=== PATIENT | female | born 1965 | race African-American/Black ===

== ENCOUNTER 2023-02-09 13:27 | Inpatient (IN) | payer OTHER ==
[~2023-02-09] VITALS: Ht 167.6 cm; Wt 121.6 kg
[2023-02-09] VITALS (7 sets, daily range): BP systolic 0–150; BP diastolic 0–106; PULSE 63–91; RESP 16–22
[2023-02-09] MEDS ORDERED: MIDAZOLAM HCL 100 MG in DEXT 5% WATER 80 ML IV ONE (13:45)
[2023-02-09] MEDS ORDERED: SODIUM CHLORIDE 0.9% 1,000 ML IV ONE (13:45)
[2023-02-09] MEDS ORDERED: MIDAZOLAM HCL 100 MG in SODIUM CHLORIDE 0.9% 100 ML IV PRN (14:00)
[2023-02-09] MEDS ORDERED: FUROSEMIDE 40MG/4ML VIAL IVP ONE (14:15)
[2023-02-09 14:32] LABS: BG BASE EXCESS -2.7 mmol/L (-2.0-2.0); BG DEOXYHEMOGLOBIN 18.5 % (0.0-5.0); BG HCO3 ACT 23.8 mmol/L (22.0-26.0); BG OXYGEN SATURATION 81.5 % (92.0-98.5); BG OXYHEMOGLOBIN 81.5 % (94.0-97.0); BG PCO2 48.3 mmHg (35.0-45.0); BG PH 7.311 (7.350-7.450); BG PO2 50.1 mmHg (75.0-100.0); BG SAMPLE SITE RIGHT BRACHIAL; BG TOTAL HEMOGLOBIN 12.9 g/dL (12.0-18.0); BG VENT MODE VENT - AC
[2023-02-09 14:41] LABS: CLARITY URINE TURBID (CLEAR); COLOR URINE YELLOW (YELLOW); GLUCOSE URINE NEGATIVE (NEGATIVE); KETONES URINE TRACE (NEGATIVE); LEUKOCYTE ESTERASE URINE NEGATIVE (NEGATIVE); NITRITE URINE NEGATIVE (NEGATIVE); OCCULT BLOOD URINE 1+ (NEGATIVE); PROTEIN URINE 3+ (NEGATIVE); SPECIFIC GRAVITY URINE 1.024 (1.005-1.030)
[2023-02-09 14:42] LABS: BASOPHILS % 0.5 % (0.0-2.0); EOSINOPHILS % 0.2 % (0.0-5.0); HEMATOCRIT. 39.9 % (36.0-48.0); HEMOGLOBIN. 12.7 g/dL (12.0-16.0); LYMPHOCYTES % 17.8 % (20.0-50.0); MEAN CORPUSCULAR HEMOGLOBIN 28.6 pg (28.0-32.0); MEAN CORPUSCULAR HGB CONC 31.7 g/dL (31.0-37.0); MEAN CORPUSCULAR VOLUME 90.2 fL (81.0-99.0); MEAN PLATELET VOLUME 8.9 fl (7.4-10.4); MONOCYTES % 3.4 % (2.0-8.0); NEUTROPHILS % 78.1 % (40.0-76.0); PLATELET 229 x1000/uL (130-400); RED BLOOD CELL COUNT 4.43 mill/uL (4.2-5.4); RED CELL DISTRIBUTION WIDTH 15.1 % (11.6-14.6); WHITE BLOOD COUNT 18.4 x1000/uL (4.5-11.0)
[2023-02-09 14:52] LABS: AMORPHOUS SEDIMENT URINE 1+ /lpf; SQUAMOUS EPITHELIAL CELL URINE RARE /lpf (RARE/1+); TRIPLE PHOSPHATE CRYSTAL URINE 1+ /lpf
[2023-02-09 14:53] LABS: BACTERIA URINE 1+; RBC URINE 0-2 /hpf (0-2)
[2023-02-09 14:54] LABS: WBC URINE 0-2 /hpf (0-2)
[2023-02-09 15:00] LABS: CHLORIDE 103 mEq/L (98-107); INDEX HEMOLYSI 3 (1-3); INDEX ICTERIC 1 (1-4); INDEX LIPEMIC 1 (1-3); SODIUM 140 mEq/L (136-145)
[2023-02-09] MEDS ORDERED: DEXAMETHASONE 10 MG/ML VIAL IV ONE (15:00)
[2023-02-09] MEDS ORDERED: MANNITOL 20% (20GM/100ML) BAG 500ML PREMIX IV ONE (15:00)
[2023-02-09] MEDS ORDERED: LEVETIRACETAM 1000MG PREMIX 100 ML IV ONE (15:00)
[2023-02-09 15:04] LABS: POTASSIUM 2.6 mEq/L (3.5-5.1)
[2023-02-09] MEDS ORDERED: NOREPINEPHRINE 8MG/250ML PMX 250 ML IV ONE (15:15)
[2023-02-09 15:22] LABS: AMMONIA 45 uMol/L (<32)
[2023-02-09 15:22] LABS: *AMPHETAMINES SCREEN URINE NEGATIVE (NEGATIVE); *BARBITURATES SCREEN URINE NEGATIVE (NEGATIVE); *BENZODIAZEPINES SCREEN URINE NEGATIVE (NEGATIVE); *COCAINE SCREEN URINE NEGATIVE (NEGATIVE); CANNABINOID URINE SCREEN NEGATIVE (NEGATIVE); ECSTASY MDMA SCREEN URINE NEGATIVE (NEGATIVE); METHADONE URINE SCREEN NEGATIVE (NEGATIVE); OPIATES URINE SCREEN NEGATIVE (NEGATIVE); PHENCYCLIDINE URINE SCREEN NEGATIVE (NEGATIVE)
[2023-02-09] MEDS ORDERED: FENTANYL 2500MCG/250ML PMX 250 ML IV PRN (15:30)
[2023-02-09 15:31] LABS: ACETAMINOPHEN < 2 ug/mL (10-30); ALANINE AMINOTRANSFERASE 43 IU/L (13-61); ALBUMIN 3.6 g/dL (3.4-5.0); ASPARTATE AMINOTRANSFERASE 48 IU/L (15-37); CALCIUM 8.6 mg/dL (8.5-10.1); CARBON DIOXIDE 23 mEq/L (21-32); CREATININE 0.8 mg/dL (0.6-1.3); ETHANOL BLOOD < 10 mg/dL (-10); GLUCOSE 309 mg/dL (70-105); LACTIC ACID 4.9 mmol/L (0.4-2.0); NT PRO B-TYPE NATRIURETIC PEP 43 pg/mL (5-125); PROTEIN TOTAL 6.6 g/dL (6.0-8.3); UREA NITROGEN BLOOD 17 mg/dL (7-21)
[2023-02-09] MEDS ORDERED: AZITHROMYCIN 500MG/250ML 250 ML IV NR (15:45)
[2023-02-09] MEDS ORDERED: CEFTRIAXONE 1GM PREMIX 50 ML IV NR (15:45)
[2023-02-09] MEDS ORDERED: FENTANYL CITRATE 2,500 MCG in SODIUM CHLORIDE 0.9% 200 ML IV PRN (15:45)
[2023-02-09 15:58] LABS: BG BASE EXCESS 3.1 mmol/L (-2.0-2.0); BG CARBOXYHEMOGLOBIN 0.4 % (0.5-1.5); BG DEOXYHEMOGLOBIN 0.5 % (0.0-5.0); BG HCO3 ACT 27.8 mmol/L (22.0-26.0); BG METHEMOGLOBIN 0.3 % (0.0-1.5); BG OXYGEN SATURATION 99.5 % (92.0-98.5); BG OXYHEMOGLOBIN 98.8 % (94.0-97.0); BG PCO2 42.7 mmHg (35.0-45.0); BG PH 7.432 (7.350-7.450); BG PO2 169.5 mmHg (75.0-100.0); BG SAMPLE SITE RIGHT RADIAL; BG TOTAL HEMOGLOBIN 14.2 g/dL (12.0-18.0); BG VENT MODE VENT - AC
[2023-02-09] MEDS ORDERED: POTASSIUM CHLORIDE INJ 40 MEQ in DEXT 5% WATER 250 ML IV SCH (16:00)
[2023-02-09] MEDS ORDERED: MANNITOL 20% 250 ML IV NR (16:00)
[2023-02-09] MEDS ORDERED: KCL 20MEQ/100ML X 2 FOR TOTAL KCL 40MEQ/200ML IV SCH (16:15)
[2023-02-09 16:39] LABS: BETA HYDROXYBUTYRATE 0.4 mMol/L (0.0-0.3); T4 FREE 0.93 ng/dL (0.76-1.46)
[2023-02-09 17:13] LABS: TROPONIN I HIGH SENSITIVITY 357 ng/L (<54)
[2023-02-09] MEDS ORDERED: PROPOFOL 10MG/ML 100ML 100 ML IV PRN (17:15)
[2023-02-09] MEDS: MORPHINE SULFATE 10 MG/ML CPJ IV NR ×2 (17:30→17:32)
[2023-02-09] MEDS ORDERED: NICARDIPINE 100 MG in SODIUM CHLORIDE 0.9% 60 ML IV PRN ×4 (17:30)
[2023-02-09] MEDS ORDERED: METRONIDAZOLE 500 MG PREMIX 100 ML IV SCH (18:00)
[2023-02-09] MEDS ORDERED: LIDOCAINE HCL 1%/EPI 1:200,000 30 ML VIAL ONE (20:01)
[2023-02-09] MEDS ORDERED: THROMBIN (BOVINE) 5000 UNITS/VIAL TOP ONE (20:01)
[2023-02-09] MEDS ORDERED: BACITRACIN 15GM TUBE TOP ONE ×2 (20:01→22:49)
[2023-02-09] MEDS ORDERED: GENTAMICIN SULF 40MG/ML 2ML VIAL ONE (20:02)
[2023-02-09] MEDS ORDERED: ONDANSETRON HCL 4MG/2ML INJ ONE (20:19)
[2023-02-09] MEDS ORDERED: DEXAMETHASONE 4MG/ML 1ML VIAL ONE (20:19)
[2023-02-09] MEDS ORDERED: GLYCOPYRROLATE 0.2 MG/ML 2ML VIAL ONE ×2 (20:20)
[2023-02-09] MEDS ORDERED: NEOSTIGMINE METHYLSULFATE 1MG/ML 10 ML VIAL ONE (20:20)
[2023-02-09] MEDS ORDERED: ROCURONIUM BROMIDE 10MG/ML VIAL 5ML IV ONE (20:20)
[2023-02-09] MEDS ORDERED: PROPOFOL 200MG/20ML VIAL IV ONE (20:20)
[2023-02-09] MEDS ORDERED: FENTANYL CITRATE/PF 50MCG/ML 2ML VIAL ONE (20:21)
[2023-02-09] MEDS ORDERED: MIDAZOLAM HCL 2 MG/2 ML VIAL ONE (20:21)
[2023-02-09] MEDS ORDERED: ALBUTEROL 6.7GM HFA INHALER ONE (22:14)
[2023-02-09] MEDS ORDERED: FUROSEMIDE 40MG/4ML VIAL ONE (22:15)
[2023-02-09] MEDS ORDERED: KCL 20MEQ/100ML X 2 FOR TOTAL KCL 40MEQ/200ML IV NR (22:45)
[2023-02-09] MEDS ORDERED: MORPHINE SULFATE 2 MG/ML CPJ (NOT FOR IM USE) IV PRN (23:45)
[2023-02-09] MEDS ORDERED: NALOXONE HCL 0.4MG/ML VIAL IV PRN (23:45)
[2023-02-10] VITALS (112 sets, daily range): BP systolic -4–160; BP diastolic -4–99; PULSE 67–105; RESP 14–90; TEMP 97.8–101
[2023-02-10] MEDS: NICARDIPINE 100 MG in SODIUM CHLORIDE 0.9% 60 ML IV PRN (00:18)
[2023-02-10] MEDS: DEXAMETHASONE 4MG/ML 1ML VIAL IV SCH ×5 (00:18→23:52)
[2023-02-10] MEDS: DEXT 5%/LACTATED RINGERS 1,000 ML IV SCH ×3 (00:19→23:53)
[2023-02-10 00:36] LABS: BG BASE EXCESS -2.1 mmol/L (-2.0-2.0); BG CARBOXYHEMOGLOBIN 0.3 % (0.5-1.5); BG DEOXYHEMOGLOBIN 0.4 % (0.0-5.0); BG FRACTION INSPIRED OXYGEN 100; BG HCO3 ACT 22.2 mmol/L (22.0-26.0); BG METHEMOGLOBIN 0.6 % (0.0-1.5); BG OXYGEN SATURATION 99.6 % (92.0-98.5); BG OXYHEMOGLOBIN 98.7 % (94.0-97.0); BG PCO2 36.7 mmHg (35.0-45.0); BG PH 7.399 (7.350-7.450); BG PO2 263.1 mmHg (75.0-100.0); BG SAMPLE SITE LEFT BRACHIAL; BG TOTAL HEMOGLOBIN 15.1 g/dL (12.0-18.0); BG VENT MODE VENT - AC
[2023-02-10] MEDS: IPRATROPIUM BROMIDE (0.02%) 0.5MG/2.5ML NEB HHN SCH ×6 (04:00→20:39)
[2023-02-10 05:14] LABS: HEMATOCRIT. 42.8 % (36.0-48.0); HEMOGLOBIN. 13.7 g/dL (12.0-16.0); MEAN CORPUSCULAR HEMOGLOBIN 28.5 pg (28.0-32.0); MEAN CORPUSCULAR VOLUME 89.3 fL (81.0-99.0); MEAN PLATELET VOLUME 9.1 fl (7.4-10.4); PLATELET 236 x1000/uL (130-400); RED BLOOD CELL COUNT 4.79 mill/uL (4.2-5.4); RED CELL DISTRIBUTION WIDTH 15.3 % (11.6-14.6); WHITE BLOOD COUNT 16.1 x1000/uL (4.5-11.0)
[2023-02-10 05:35] LABS: DIFFERENTIAL COMMENT 1
[2023-02-10] MEDS ORDERED: CEFAZOLIN SODIUM 1000MG/VIAL IV SCH (06:00)
[2023-02-10 06:31] LABS: CALCIUM 9.1 mg/dL (8.5-10.1); CHLORIDE 105 mEq/L (98-107); GLUCOSE 381 mg/dL (70-105); INDEX HEMOLYSI 4 (1-3); INDEX ICTERIC 1 (1-4); INDEX LIPEMIC 1 (1-3); POTASSIUM 3.4 mEq/L (3.5-5.1); SODIUM 140 mEq/L (136-145); UREA NITROGEN BLOOD 14 mg/dL (7-21)
[2023-02-10] MEDS: CEFAZOLIN 1000MG PREMIX 50 ML IV SCH ×3 (06:33→23:52)
[2023-02-10 06:34] LABS: CARBON DIOXIDE 19 mEq/L (21-32); CREATININE 0.7 mg/dL (0.6-1.3)
[2023-02-10] MEDS ORDERED: KCL 20MEQ/100ML PREMIX 100 ML IV NR (09:00)
[2023-02-10] MEDS ORDERED: CEFTRIAXONE 1,000 MG in DEXTROSE 5% WATER 50 ML IV SCH (09:00)
[2023-02-10 09:48] LABS: BG BASE EXCESS 0.8 mmol/L (-2.0-2.0); BG CARBOXYHEMOGLOBIN 0.6 % (0.5-1.5); BG DEOXYHEMOGLOBIN 0.8 % (0.0-5.0); BG FRACTION INSPIRED OXYGEN 50; BG HCO3 ACT 22.8 mmol/L (22.0-26.0); BG METHEMOGLOBIN 0.4 % (0.0-1.5); BG OXYGEN SATURATION 99.2 % (92.0-98.5); BG OXYHEMOGLOBIN 98.2 % (94.0-97.0); BG PCO2 29.5 mmHg (35.0-45.0); BG PH 7.506 (7.350-7.450); BG PO2 149.8 mmHg (75.0-100.0); BG SAMPLE SITE RIGHT RADIAL; BG TOTAL HEMOGLOBIN 14.7 g/dL (12.0-18.0); BG VENT MODE VENT - AC
[2023-02-10] MEDS ORDERED: AZITHROMYCIN 500 MG in DEXT 5% WATER 250 ML IV SCH (10:00)
[2023-02-10 10:13] LABS: ANISOCYTOSIS 1+; PLATELET ESTIMATE NORMAL
[2023-02-10] MEDS ORDERED: DEXTROSE 50% WATER 50ML SYRINGE IV PRN (11:00)
[2023-02-10] MEDS: BLOOD SUGAR DIAGNOSTIC STRIP TEST SCH ×3 (11:25→21:14)
[2023-02-10] MEDS: INSULIN LISPRO 100 UNITS/ML SUBCUT SCH ×3 (11:30→21:14)
[2023-02-10] MEDS ORDERED: LEVETIRACETAM 500 MG in SODIUM CHLORIDE 0.9% 100 ML IV SCH (12:45)
[2023-02-10 13:24] LABS: INR 1.1; PROTHROMBIN TIME 11.8 sec (9.6-11.0)
[2023-02-10] MEDS: CEFTRIAXONE 1,000 MG in DEXTROSE 5% WATER 50 ML IV SCH (14:25)
[2023-02-10] MEDS: LEVETIRACETAM 500MG PREMIX 100 ML IV SCH ×2 (14:25→23:52)
[2023-02-10] MEDS: AZITHROMYCIN 500 MG in DEXT 5% WATER 250 ML IV SCH (14:25)
[2023-02-11] VITALS (108 sets, daily range): BP systolic -2–251; BP diastolic -3–250; PULSE 89–110; RESP 18–88; TEMP 97.6–98.8
[2023-02-11] MEDS: IPRATROPIUM BROMIDE (0.02%) 0.5MG/2.5ML NEB HHN SCH ×5 (00:17→16:28)
[2023-02-11] MEDS: BLOOD SUGAR DIAGNOSTIC STRIP TEST SCH ×4 (05:38→20:31)
[2023-02-11] MEDS: DEXAMETHASONE 4MG/ML 1ML VIAL IV SCH ×4 (05:39→23:11)
[2023-02-11 05:43] LABS: HEMATOCRIT. 37.2 % (36.0-48.0); MEAN CORPUSCULAR HEMOGLOBIN 28.4 pg (28.0-32.0); MEAN CORPUSCULAR HGB CONC 32.3 g/dL (31.0-37.0); MEAN CORPUSCULAR VOLUME 87.9 fL (81.0-99.0); MEAN PLATELET VOLUME 9.2 fl (7.4-10.4); PLATELET 185 x1000/uL (130-400); RED BLOOD CELL COUNT 4.23 mill/uL (4.2-5.4); RED CELL DISTRIBUTION WIDTH 15.3 % (11.6-14.6); WHITE BLOOD COUNT 16.2 x1000/uL (4.5-11.0)
[2023-02-11 05:44] LABS: DIFFERENTIAL COMMENT 1
[2023-02-11 05:56] LABS: CALCIUM 8.5 mg/dL (8.5-10.1); CHLORIDE 109 mEq/L (98-107); INDEX HEMOLYSI 1 (1-3); INDEX ICTERIC 1 (1-4); INDEX LIPEMIC 1 (1-3); SODIUM 143 mEq/L (136-145)
[2023-02-11 06:00] LABS: CARBON DIOXIDE 23 mEq/L (21-32); CREATININE 0.6 mg/dL (0.6-1.3); GLUCOSE 277 mg/dL (70-105); UREA NITROGEN BLOOD 17 mg/dL (7-21)
[2023-02-11] MEDS: INSULIN LISPRO 100 UNITS/ML SUBCUT SCH ×4 (06:07→20:32)
[2023-02-11 06:14] LABS: POTASSIUM 2.7 mEq/L (3.5-5.1)
[2023-02-11 07:20] LABS: ANISOCYTOSIS 1+; PLATELET ESTIMATE NORMAL
[2023-02-11] MEDS: NICARDIPINE 100 MG in SODIUM CHLORIDE 0.9% 60 ML IV PRN (08:02)
[2023-02-11] MEDS: CEFAZOLIN 1000MG PREMIX 50 ML IV SCH ×3 (08:02→23:11)
[2023-02-11] MEDS ORDERED: POTASSIUM CHLORIDE INJ 60 MEQ in DEXT 5% WATER 500 ML IV ONE (09:00)
[2023-02-11] MEDS: PANTOPRAZOLE SODIUM 40 MG/VIAL IV SCH (09:50)
[2023-02-11] MEDS: LEVETIRACETAM 500MG PREMIX 100 ML IV SCH ×2 (09:50→20:31)
[2023-02-11 10:10] LABS: BG BASE EXCESS 3.7 mmol/L (-2.0-2.0); BG CARBOXYHEMOGLOBIN 0.7 % (0.5-1.5); BG DEOXYHEMOGLOBIN 1.9 % (0.0-5.0); BG FRACTION INSPIRED OXYGEN 40; BG HCO3 ACT 25.6 mmol/L (22.0-26.0); BG METHEMOGLOBIN 0.3 % (0.0-1.5); BG OXYGEN SATURATION 98.1 % (92.0-98.5); BG OXYHEMOGLOBIN 97.1 % (94.0-97.0); BG PCO2 30.6 mmHg (35.0-45.0); BG PO2 102.8 mmHg (75.0-100.0); BG SAMPLE SITE RIGHT RADIAL; BG TOTAL HEMOGLOBIN 13.9 g/dL (12.0-18.0); BG VENT MODE VENT - AC
[2023-02-11] MEDS: AZITHROMYCIN 500 MG in DEXT 5% WATER 250 ML IV SCH (15:05)
[2023-02-11] MEDS: DEXT 5%/LACTATED RINGERS 1,000 ML IV SCH (15:05)
[2023-02-11] MEDS: CEFTRIAXONE 1,000 MG in DEXTROSE 5% WATER 50 ML IV SCH (15:05)
[2023-02-11] MEDS ORDERED: POTASSIUM CHLORIDE INJ 40 MEQ in DEXT 5% WATER 250 ML IV NR (20:00)
[2023-02-12] VITALS (101 sets, daily range): BP systolic -15–167; BP diastolic -15–105; PULSE 73–104; RESP 10–38; TEMP 97.4–98
[2023-02-12] MEDS: DEXT 5%/LACTATED RINGERS 1,000 ML IV SCH ×2 (01:11→13:59)
[2023-02-12] MEDS: MORPHINE SULFATE 4 MG/ML CPJ (NOT FOR IM USE) IV PRN ×2 (01:11→02:57)
[2023-02-12] MEDS ORDERED: MANNITOL 20% (20GM/100ML) BAG 500ML PREMIX IV NR (02:30)
[2023-02-12] MEDS: BLOOD SUGAR DIAGNOSTIC STRIP TEST SCH ×3 (06:04→17:38)
[2023-02-12] MEDS: DEXAMETHASONE 4MG/ML 1ML VIAL IV SCH ×3 (06:05→17:41)
[2023-02-12] MEDS: INSULIN LISPRO 100 UNITS/ML SUBCUT SCH ×3 (06:06→17:43)
[2023-02-12 06:41] LABS: HEMATOCRIT. 35.5 % (36.0-48.0); HEMOGLOBIN. 11.3 g/dL (12.0-16.0); MEAN CORPUSCULAR HEMOGLOBIN 28.1 pg (28.0-32.0); MEAN CORPUSCULAR VOLUME 87.9 fL (81.0-99.0); MEAN PLATELET VOLUME 8.6 fl (7.4-10.4); PLATELET 184 x1000/uL (130-400); RED BLOOD CELL COUNT 4.04 mill/uL (4.2-5.4); RED CELL DISTRIBUTION WIDTH 15.6 % (11.6-14.6); WHITE BLOOD COUNT 13.6 x1000/uL (4.5-11.0)
[2023-02-12 06:42] LABS: DIFFERENTIAL COMMENT 1
[2023-02-12] MEDS: IPRATROPIUM BROMIDE (0.02%) 0.5MG/2.5ML NEB HHN SCH ×4 (07:48→20:55)
[2023-02-12 08:01] LABS: CHLORIDE 112 mEq/L (98-107); INDEX HEMOLYSI 1 (1-3); INDEX ICTERIC 1 (1-4); INDEX LIPEMIC 1 (1-3); POTASSIUM 3.9 mEq/L (3.5-5.1); SODIUM 142 mEq/L (136-145)
[2023-02-12 08:06] LABS: CALCIUM 8.8 mg/dL (8.5-10.1); CARBON DIOXIDE 23 mEq/L (21-32); CREATININE 0.6 mg/dL (0.6-1.3); GLUCOSE 260 mg/dL (70-105); UREA NITROGEN BLOOD 22 mg/dL (7-21)
[2023-02-12] MEDS: LEVETIRACETAM 500MG PREMIX 100 ML IV SCH ×2 (08:43→20:53)
[2023-02-12] MEDS: PANTOPRAZOLE SODIUM 40 MG/VIAL IV SCH (08:43)
[2023-02-12 08:52] LABS: BG BASE EXCESS -2.6 mmol/L (-2.0-2.0); BG CARBOXYHEMOGLOBIN 0.3 % (0.5-1.5); BG DEOXYHEMOGLOBIN 5.8 % (0.0-5.0); BG FRACTION INSPIRED OXYGEN 30; BG HCO3 ACT 18.7 mmol/L (22.0-26.0); BG METHEMOGLOBIN 0.3 % (0.0-1.5); BG OXYGEN SATURATION 94.2 % (92.0-98.5); BG OXYHEMOGLOBIN 93.6 % (94.0-97.0); BG PCO2 22.7 mmHg (35.0-45.0); BG PH 7.533 (7.350-7.450); BG PO2 66.4 mmHg (75.0-100.0); BG SAMPLE SITE ALINE; BG TOTAL HEMOGLOBIN 10.6 g/dL (12.0-18.0); BG TOTAL RESPIRATORY RATE 19 b/min; BG VENT MODE VENT - AC
[2023-02-12 13:10] LABS: PLATELET ESTIMATE NORMAL
[2023-02-12] MEDS: CEFTRIAXONE 1,000 MG in DEXTROSE 5% WATER 50 ML IV SCH (14:00)
[2023-02-12] MEDS: AZITHROMYCIN 500 MG in DEXT 5% WATER 250 ML IV SCH (14:00)
[2023-02-12] MEDS: LACTATED RINGERS 1,000 ML IV SCH (17:04)
[2023-02-12] MEDS: NICARDIPINE 100 MG in SODIUM CHLORIDE 0.9% 60 ML IV PRN (17:33)
[2023-02-13] VITALS (109 sets, daily range): BP systolic 86–276; BP diastolic 48–271; PULSE 78–105; RESP 11–29; TEMP 97.5–98.3
[2023-02-13] MEDS: BLOOD SUGAR DIAGNOSTIC STRIP TEST SCH ×8 (00:33→17:13)
[2023-02-13] MEDS: IPRATROPIUM BROMIDE (0.02%) 0.5MG/2.5ML NEB HHN SCH ×4 (00:38→20:39)
[2023-02-13] MEDS: DEXAMETHASONE 4MG/ML 1ML VIAL IV SCH ×3 (00:51→17:13)
[2023-02-13] MEDS: INSULIN LISPRO 100 UNITS/ML SUBCUT SCH ×5 (00:52→22:05)
[2023-02-13] MEDS: NICARDIPINE 100 MG in SODIUM CHLORIDE 0.9% 60 ML IV PRN ×2 (02:17→15:18)
[2023-02-13] MEDS: LACTATED RINGERS 1,000 ML IV SCH (05:19)
[2023-02-13 05:50] LABS: HEMATOCRIT. 38.1 % (36.0-48.0); HEMOGLOBIN. 12.1 g/dL (12.0-16.0); MEAN CORPUSCULAR HGB CONC 31.8 g/dL (31.0-37.0); MEAN CORPUSCULAR VOLUME 88.1 fL (81.0-99.0); MEAN PLATELET VOLUME 9.2 fl (7.4-10.4); PLATELET 195 x1000/uL (130-400); RED BLOOD CELL COUNT 4.32 mill/uL (4.2-5.4); RED CELL DISTRIBUTION WIDTH 15.2 % (11.6-14.6); WHITE BLOOD COUNT 12.3 x1000/uL (4.5-11.0)
[2023-02-13 06:00] LABS: CHLORIDE 112 mEq/L (98-107); INDEX HEMOLYSI 1 (1-3); INDEX ICTERIC 1 (1-4); INDEX LIPEMIC 1 (1-3); POTASSIUM 3.9 mEq/L (3.5-5.1); SODIUM 143 mEq/L (136-145)
[2023-02-13 06:07] LABS: CALCIUM 9.3 mg/dL (8.5-10.1); CARBON DIOXIDE 25 mEq/L (21-32); CREATININE 0.6 mg/dL (0.6-1.3); GLUCOSE 231 mg/dL (70-105); UREA NITROGEN BLOOD 29 mg/dL (7-21)
[2023-02-13 06:22] LABS: DIFFERENTIAL COMMENT 1
[2023-02-13 07:41] LABS: BG BASE EXCESS 0.9 mmol/L (-2.0-2.0); BG CARBOXYHEMOGLOBIN 0.3 % (0.5-1.5); BG DEOXYHEMOGLOBIN 1.8 % (0.0-5.0); BG METHEMOGLOBIN 0.3 % (0.0-1.5); BG OXYGEN SATURATION 98.2 % (92.0-98.5); BG OXYHEMOGLOBIN 97.6 % (94.0-97.0); BG PCO2 43.4 mmHg (35.0-45.0); BG PH 7.395 (7.350-7.450); BG PO2 108.2 mmHg (75.0-100.0); BG SAMPLE SITE ALINE; BG TOTAL HEMOGLOBIN 13.3 g/dL (12.0-18.0); BG VENT MODE VENT - AC
[2023-02-13] MEDS: PANTOPRAZOLE SODIUM 40 MG/VIAL IV SCH (09:53)
[2023-02-13] MEDS: LEVETIRACETAM 500MG PREMIX 100 ML IV SCH ×2 (09:53→21:10)
[2023-02-13 14:36] LABS: PLATELET ESTIMATE NORMAL
[2023-02-13] MEDS: CEFTRIAXONE 1,000 MG in DEXTROSE 5% WATER 50 ML IV SCH (15:18)
[2023-02-13] MEDS: AZITHROMYCIN 500 MG in DEXT 5% WATER 250 ML IV SCH (15:18)
[2023-02-13] MEDS ORDERED: INSULIN LISPRO 100 UNITS/ML SUBCUT SCH (21:00)
[2023-02-14] VITALS (104 sets, daily range): BP systolic 104–140; BP diastolic 53–84; PULSE 64–110; RESP 10–79; TEMP 97.8–99.3
[2023-02-14] MEDS: IPRATROPIUM BROMIDE (0.02%) 0.5MG/2.5ML NEB HHN SCH ×5 (00:26→16:15)
[2023-02-14] MEDS: INSULIN LISPRO 100 UNITS/ML SUBCUT SCH ×4 (01:02→17:15)
[2023-02-14 05:29] LABS: CHLORIDE 116 mEq/L (98-107); INDEX HEMOLYSI 1 (1-3); INDEX ICTERIC 1 (1-4); INDEX LIPEMIC 1 (1-3); POTASSIUM 3.8 mEq/L (3.5-5.1); SODIUM 147 mEq/L (136-145)
[2023-02-14 05:40] LABS: BASOPHILS % 0.1 % (0.0-2.0); DIFFERENTIAL COMMENT 0; HEMATOCRIT. 39.7 % (36.0-48.0); HEMOGLOBIN. 12.5 g/dL (12.0-16.0); LYMPHOCYTES % 7.4 % (20.0-50.0); MEAN CORPUSCULAR HGB CONC 31.4 g/dL (31.0-37.0); MEAN CORPUSCULAR VOLUME 89.1 fL (81.0-99.0); MEAN PLATELET VOLUME 9.1 fl (7.4-10.4); MONOCYTES % 5.3 % (2.0-8.0); NEUTROPHILS % 87.2 % (40.0-76.0); PLATELET 215 x1000/uL (130-400); RED BLOOD CELL COUNT 4.45 mill/uL (4.2-5.4); RED CELL DISTRIBUTION WIDTH 15.2 % (11.6-14.6); WHITE BLOOD COUNT 12.2 x1000/uL (4.5-11.0)
[2023-02-14 05:42] LABS: CALCIUM 9.2 mg/dL (8.5-10.1); CARBON DIOXIDE 26 mEq/L (21-32); CREATININE 0.6 mg/dL (0.6-1.3); GLUCOSE 215 mg/dL (70-105); UREA NITROGEN BLOOD 35 mg/dL (7-21)
[2023-02-14] MEDS: NICARDIPINE 100 MG in SODIUM CHLORIDE 0.9% 60 ML IV PRN (07:09)
[2023-02-14] MEDS: BLOOD SUGAR DIAGNOSTIC STRIP TEST SCH ×3 (08:00→17:16)
[2023-02-14 09:09] LABS: BG BASE EXCESS 2.6 mmol/L (-2.0-2.0); BG CARBOXYHEMOGLOBIN 0.1 % (0.5-1.5); BG DEOXYHEMOGLOBIN 2.6 % (0.0-5.0); BG FRACTION INSPIRED OXYGEN 30; BG HCO3 ACT 28.1 mmol/L (22.0-26.0); BG METHEMOGLOBIN 0.1 % (0.0-1.5); BG OXYGEN SATURATION 97.4 % (92.0-98.5); BG OXYHEMOGLOBIN 97.2 % (94.0-97.0); BG PH 7.395 (7.350-7.450); BG PO2 101.5 mmHg (75.0-100.0); BG SAMPLE SITE RIGHT RADIAL; BG TOTAL HEMOGLOBIN 13.9 g/dL (12.0-18.0); BG VENT MODE VENT - AC
[2023-02-14] MEDS: DEXAMETHASONE 4MG/ML 1ML VIAL IV SCH ×2 (09:46→17:15)
[2023-02-14] MEDS: LEVETIRACETAM 500MG PREMIX 100 ML IV SCH ×2 (09:46→21:56)
[2023-02-14] MEDS: PANTOPRAZOLE SODIUM 40 MG/VIAL IV SCH (09:46)
[2023-02-14] MEDS ORDERED: INSULIN LISPRO 100 UNITS/ML SUBCUT SCH ×2 (12:00)
[2023-02-14] MEDS ORDERED: BISACODYL 10MG SUPP PR PRN (15:15)
[2023-02-14] MEDS: METOCLOPRAMIDE HCL 10MG/2ML VIAL IV SCH (17:15)
[2023-02-15] VITALS (106 sets, daily range): BP systolic 105–141; BP diastolic 57–84; PULSE 91–115; RESP 10–116; TEMP 97.5–99.7
[2023-02-15] MEDS: BLOOD SUGAR DIAGNOSTIC STRIP TEST SCH ×5 (00:38→23:32)
[2023-02-15] MEDS: METOCLOPRAMIDE HCL 10MG/2ML VIAL IV SCH ×5 (00:42→23:32)
[2023-02-15] MEDS: INSULIN LISPRO 100 UNITS/ML SUBCUT SCH ×5 (00:42→23:33)
[2023-02-15] MEDS: NICARDIPINE 100 MG in SODIUM CHLORIDE 0.9% 60 ML IV PRN (03:04)
[2023-02-15 05:15] LABS: HEMATOCRIT. 41.1 % (36.0-48.0); HEMOGLOBIN. 12.9 g/dL (12.0-16.0); MEAN CORPUSCULAR HEMOGLOBIN 27.8 pg (28.0-32.0); MEAN CORPUSCULAR HGB CONC 31.3 g/dL (31.0-37.0); MEAN CORPUSCULAR VOLUME 88.8 fL (81.0-99.0); MEAN PLATELET VOLUME 8.8 fl (7.4-10.4); PLATELET 223 x1000/uL (130-400); RED BLOOD CELL COUNT 4.62 mill/uL (4.2-5.4); WHITE BLOOD COUNT 13.8 x1000/uL (4.5-11.0)
[2023-02-15 05:22] LABS: CHLORIDE 118 mEq/L (98-107); INDEX HEMOLYSI 1 (1-3); INDEX ICTERIC 1 (1-4); INDEX LIPEMIC 1 (1-3); POTASSIUM 3.9 mEq/L (3.5-5.1); SODIUM 149 mEq/L (136-145)
[2023-02-15 05:24] LABS: CALCIUM 8.9 mg/dL (8.5-10.1)
[2023-02-15 05:27] LABS: DIFFERENTIAL COMMENT 1
[2023-02-15 05:28] LABS: CARBON DIOXIDE 28 mEq/L (21-32); CREATININE 0.7 mg/dL (0.6-1.3); GLUCOSE 332 mg/dL (70-105); UREA NITROGEN BLOOD 45 mg/dL (7-21)
[2023-02-15 08:05] LABS: BG BASE EXCESS 1.7 mmol/L (-2.0-2.0); BG CARBOXYHEMOGLOBIN 0.3 % (0.5-1.5); BG DEOXYHEMOGLOBIN 2.8 % (0.0-5.0); BG HCO3 ACT 27.6 mmol/L (22.0-26.0); BG METHEMOGLOBIN 0.1 % (0.0-1.5); BG OXYGEN SATURATION 97.2 % (92.0-98.5); BG OXYHEMOGLOBIN 96.8 % (94.0-97.0); BG PCO2 47.8 mmHg (35.0-45.0); BG PH 7.379 (7.350-7.450); BG PO2 97.5 mmHg (75.0-100.0); BG SAMPLE SITE RIGHT BRACHIAL; BG TOTAL HEMOGLOBIN 14.8 g/dL (12.0-18.0); BG VENT MODE VENT - AC
[2023-02-15] MEDS: LEVETIRACETAM 500MG PREMIX 100 ML IV SCH ×2 (08:58→20:39)
[2023-02-15] MEDS: DOCUSATE SODIUM SUGAR FREE 100MG/10ML UDC NG SCH (08:58)
[2023-02-15] MEDS: PANTOPRAZOLE SODIUM 40 MG/VIAL IV SCH (08:58)
[2023-02-15] MEDS: DEXAMETHASONE 4MG/ML 1ML VIAL IV SCH (08:59)
[2023-02-15 10:14] LABS: PLATELET ESTIMATE NORMAL
[2023-02-15 12:57] LABS: CLARITY URINE CLEAR (CLEAR); COLOR URINE YELLOW (YELLOW); GLUCOSE URINE 2+ (NEGATIVE); KETONES URINE NEGATIVE (NEGATIVE); LEUKOCYTE ESTERASE URINE NEGATIVE (NEGATIVE); NITRITE URINE NEGATIVE (NEGATIVE); OCCULT BLOOD URINE NEGATIVE (NEGATIVE); PH URINE 5.5 (4.5-8.0); PROTEIN URINE NEGATIVE (NEGATIVE); SPECIFIC GRAVITY URINE 1.021 (1.005-1.030); UROBILINOGEN URINE 0.2 E.U./dL (0.2-1.0)
[2023-02-15] MEDS ORDERED: CLONIDINE 0.1MG TABLET PO PRN (13:15)
[2023-02-15 13:30] LABS: BACTERIA URINE RARE; RBC URINE 0-2 /hpf (0-2); SQUAMOUS EPITHELIAL CELL URINE NONE SEEN /lpf (RARE/1+); WBC URINE 0-2 /hpf (0-2); YEAST URINE 1+
[2023-02-15] MEDS: AMLODIPINE 10MG TABLET PO SCH (14:29)
[2023-02-16] VITALS (106 sets, daily range): BP systolic 101–150; BP diastolic 58–91; PULSE 89–110; RESP 10–24; TEMP 97.8–98.7
[2023-02-16 06:02] LABS: HEMOGLOBIN. 13.1 g/dL (12.0-16.0); MEAN CORPUSCULAR HEMOGLOBIN 28.3 pg (28.0-32.0); MEAN CORPUSCULAR HGB CONC 31.1 g/dL (31.0-37.0); MEAN CORPUSCULAR VOLUME 90.8 fL (81.0-99.0); MEAN PLATELET VOLUME 9.1 fl (7.4-10.4); PLATELET 200 x1000/uL (130-400); RED BLOOD CELL COUNT 4.63 mill/uL (4.2-5.4); RED CELL DISTRIBUTION WIDTH 15.1 % (11.6-14.6); WHITE BLOOD COUNT 14.7 x1000/uL (4.5-11.0)
[2023-02-16 06:07] LABS: DIFFERENTIAL COMMENT 1
[2023-02-16 06:12] LABS: CHLORIDE 125 mEq/L (98-107); INDEX HEMOLYSI 1 (1-3); INDEX ICTERIC 1 (1-4); INDEX LIPEMIC 1 (1-3); SODIUM 155 mEq/L (136-145)
[2023-02-16 06:16] LABS: CALCIUM 8.8 mg/dL (8.5-10.1); CARBON DIOXIDE 29 mEq/L (21-32); CREATININE 0.6 mg/dL (0.6-1.3); GLUCOSE 325 mg/dL (70-105); UREA NITROGEN BLOOD 48 mg/dL (7-21)
[2023-02-16] MEDS: METOCLOPRAMIDE HCL 10MG/2ML VIAL IV SCH ×4 (06:19→23:33)
[2023-02-16] MEDS: BLOOD SUGAR DIAGNOSTIC STRIP TEST SCH ×4 (06:19→23:23)
[2023-02-16] MEDS: INSULIN LISPRO 100 UNITS/ML SUBCUT SCH ×4 (06:21→23:35)
[2023-02-16 08:27] LABS: BG CARBOXYHEMOGLOBIN 0.3 % (0.5-1.5); BG FRACTION INSPIRED OXYGEN 30; BG METHEMOGLOBIN 0.2 % (0.0-1.5); BG OXYHEMOGLOBIN 96.5 % (94.0-97.0); BG PCO2 48.5 mmHg (35.0-45.0); BG PH 7.379 (7.350-7.450); BG PO2 99.2 mmHg (75.0-100.0); BG SAMPLE SITE RIGHT RADIAL; BG TOTAL HEMOGLOBIN 14.7 g/dL (12.0-18.0); BG VENT MODE VENT - AC
[2023-02-16] MEDS: PANTOPRAZOLE SODIUM 40 MG/VIAL IV SCH (09:02)
[2023-02-16] MEDS: DOCUSATE SODIUM SUGAR FREE 100MG/10ML UDC NG SCH (09:02)
[2023-02-16] MEDS: LEVETIRACETAM 500MG PREMIX 100 ML IV SCH ×2 (09:02→20:11)
[2023-02-16] MEDS: AMLODIPINE 10MG TABLET PO SCH (09:05)
[2023-02-16] MEDS: NICARDIPINE 100 MG in SODIUM CHLORIDE 0.9% 60 ML IV PRN (10:12)
[2023-02-16 16:50] LABS: ANISOCYTOSIS 1+; HYPOCHROMASIA 1+; PLATELET ESTIMATE NORMAL
[2023-02-16] MEDS ORDERED: HYDRALAZINE HCL 50MG TABLET PO NR (17:08)
[2023-02-16] MEDS: HYDRALAZINE HCL 50MG TABLET PO SCH (20:11)
[2023-02-16] MEDS ORDERED: INSULIN GLARGINE 100 UNITS/ML SUBCUT SCH (22:00)
[2023-02-17] VITALS (84 sets, daily range): BP systolic 110–153; BP diastolic 62–87; PULSE 85–109; RESP 10–30; TEMP 98.1–99.6
[2023-02-17] MEDS: BLOOD SUGAR DIAGNOSTIC STRIP TEST SCH ×4 (05:11→23:43)
[2023-02-17 05:28] LABS: BASOPHILS % 0.2 % (0.0-2.0); DIFFERENTIAL COMMENT 0; HEMATOCRIT. 37.9 % (36.0-48.0); HEMOGLOBIN. 11.9 g/dL (12.0-16.0); LYMPHOCYTES % 12.6 % (20.0-50.0); MEAN CORPUSCULAR HEMOGLOBIN 28.2 pg (28.0-32.0); MEAN CORPUSCULAR HGB CONC 31.3 g/dL (31.0-37.0); MEAN PLATELET VOLUME 9.2 fl (7.4-10.4); MONOCYTES % 8.8 % (2.0-8.0); NEUTROPHILS % 78.4 % (40.0-76.0); PLATELET 193 x1000/uL (130-400); RED BLOOD CELL COUNT 4.21 mill/uL (4.2-5.4); RED CELL DISTRIBUTION WIDTH 15.6 % (11.6-14.6); WHITE BLOOD COUNT 15.3 x1000/uL (4.5-11.0)
[2023-02-17] MEDS: METOCLOPRAMIDE HCL 10MG/2ML VIAL IV SCH ×4 (05:38→23:43)
[2023-02-17 05:39] LABS: CHLORIDE 128 mEq/L (98-107); INDEX HEMOLYSI 3 (1-3); INDEX ICTERIC 1 (1-4); INDEX LIPEMIC 1 (1-3)
[2023-02-17] MEDS: INSULIN LISPRO 100 UNITS/ML SUBCUT SCH ×4 (05:39→23:43)
[2023-02-17 05:44] LABS: CALCIUM 8.9 mg/dL (8.5-10.1); CARBON DIOXIDE 33 mEq/L (21-32); CREATININE 0.7 mg/dL (0.6-1.3); GLUCOSE 347 mg/dL (70-105); UREA NITROGEN BLOOD 49 mg/dL (7-21)
[2023-02-17 06:01] LABS: SODIUM 159 mEq/L (136-145)
[2023-02-17 08:10] LABS: BG CARBOXYHEMOGLOBIN 0.3 % (0.5-1.5); BG DEOXYHEMOGLOBIN 3.7 % (0.0-5.0); BG HCO3 ACT 31.3 mmol/L (22.0-26.0); BG METHEMOGLOBIN 0.2 % (0.0-1.5); BG OXYGEN SATURATION 96.3 % (92.0-98.5); BG OXYHEMOGLOBIN 95.8 % (94.0-97.0); BG PCO2 53.9 mmHg (35.0-45.0); BG PH 7.382 (7.350-7.450); BG PO2 92.8 mmHg (75.0-100.0); BG SAMPLE SITE LEFT RADIAL; BG TOTAL HEMOGLOBIN 12.4 g/dL (12.0-18.0); BG VENT MODE VENT - AC
[2023-02-17] MEDS: PANTOPRAZOLE SODIUM 40 MG/VIAL IV SCH (09:44)
[2023-02-17] MEDS: LEVETIRACETAM 500MG PREMIX 100 ML IV SCH ×2 (09:44→21:08)
[2023-02-17] MEDS: HYDRALAZINE HCL 50MG TABLET PO SCH ×2 (09:44→21:07)
[2023-02-17] MEDS: AMLODIPINE 10MG TABLET PO SCH (09:44)
[2023-02-17] MEDS: DOCUSATE SODIUM SUGAR FREE 100MG/10ML UDC NG SCH (09:44)
[2023-02-17] MEDS: DEXTROSE 5% WATER 1,000 ML IV SCH (09:47)
[2023-02-17] MEDS: INSULIN GLARGINE 100 UNITS/ML SUBCUT SCH ×2 (09:48→21:07)
[2023-02-17] MEDS ORDERED: INSULIN GLARGINE 100 UNITS/ML SUBCUT SCH (10:00)
[2023-02-18] VITALS (106 sets, daily range): BP systolic 94–167; BP diastolic 23–78; PULSE 88–115; RESP 10–70; TEMP 98.5–100
[2023-02-18] MEDS: NICARDIPINE 100 MG in SODIUM CHLORIDE 0.9% 60 ML IV PRN ×2 (02:23→11:21)
[2023-02-18 05:29] LABS: BASOPHILS % 0.4 % (0.0-2.0); EOSINOPHILS % 1.3 % (0.0-5.0); HEMATOCRIT. 38.9 % (36.0-48.0); HEMOGLOBIN. 12.1 g/dL (12.0-16.0); LYMPHOCYTES % 16.4 % (20.0-50.0); MEAN CORPUSCULAR HEMOGLOBIN 28.2 pg (28.0-32.0); MEAN CORPUSCULAR HGB CONC 31.1 g/dL (31.0-37.0); MEAN CORPUSCULAR VOLUME 90.6 fL (81.0-99.0); MEAN PLATELET VOLUME 9.8 fl (7.4-10.4); MONOCYTES % 6.8 % (2.0-8.0); NEUTROPHILS % 75.1 % (40.0-76.0); PLATELET 187 x1000/uL (130-400); RED CELL DISTRIBUTION WIDTH 15.4 % (11.6-14.6); WHITE BLOOD COUNT 16.7 x1000/uL (4.5-11.0)
[2023-02-18 05:42] LABS: CHLORIDE 125 mEq/L (98-107); INDEX HEMOLYSI 4 (1-3); INDEX ICTERIC 1 (1-4); INDEX LIPEMIC 1 (1-3)
[2023-02-18 05:50] LABS: CALCIUM 9.4 mg/dL (8.5-10.1); CARBON DIOXIDE 32 mEq/L (21-32); CREATININE 0.7 mg/dL (0.6-1.3); GLUCOSE 186 mg/dL (70-105); UREA NITROGEN BLOOD 34 mg/dL (7-21)
[2023-02-18] MEDS: INSULIN LISPRO 100 UNITS/ML SUBCUT SCH ×3 (06:30→18:08)
[2023-02-18] MEDS: BLOOD SUGAR DIAGNOSTIC STRIP TEST SCH ×3 (06:32→17:57)
[2023-02-18] MEDS: DEXTROSE 5% WATER 1,000 ML IV SCH (06:32)
[2023-02-18] MEDS: METOCLOPRAMIDE HCL 10MG/2ML VIAL IV SCH ×3 (06:32→18:03)
[2023-02-18 07:41] LABS: POTASSIUM 4.1 mEq/L (3.5-5.1); SODIUM 158 mEq/L (136-145)
[2023-02-18 08:04] LABS: BG BASE EXCESS 8.6 mmol/L (-2.0-2.0); BG CARBOXYHEMOGLOBIN 0.3 % (0.5-1.5); BG DEOXYHEMOGLOBIN 4.4 % (0.0-5.0); BG HCO3 ACT 34.8 mmol/L (22.0-26.0); BG METHEMOGLOBIN 0.1 % (0.0-1.5); BG OXYGEN SATURATION 95.6 % (92.0-98.5); BG OXYHEMOGLOBIN 95.2 % (94.0-97.0); BG PCO2 55.2 mmHg (35.0-45.0); BG PH 7.418 (7.350-7.450); BG PO2 84.9 mmHg (75.0-100.0); BG SAMPLE SITE LEFT RADIAL; BG TOTAL HEMOGLOBIN 12.9 g/dL (12.0-18.0); BG VENT MODE VENT - AC
[2023-02-18] MEDS: AMLODIPINE 10MG TABLET PO SCH (09:16)
[2023-02-18] MEDS: HYDRALAZINE HCL 50MG TABLET PO SCH (09:16)
[2023-02-18] MEDS: LEVETIRACETAM 500MG PREMIX 100 ML IV SCH ×2 (09:16→21:37)
[2023-02-18] MEDS: DOCUSATE SODIUM SUGAR FREE 100MG/10ML UDC NG SCH (09:17)
[2023-02-18] MEDS: PANTOPRAZOLE SODIUM 40 MG/VIAL IV SCH (09:17)
[2023-02-18] MEDS: INSULIN GLARGINE 100 UNITS/ML SUBCUT SCH ×2 (09:18→21:40)
[2023-02-18] MEDS ORDERED: DEXTROSE 5% WATER 1,000 ML IV SCH (11:00)
[2023-02-18] MEDS: ACETAMINOPHEN 650MG/20.3ML UDC GT PRN ×2 (13:17→21:40)
[2023-02-18] MEDS: NITROFURANTOIN MACROCRYSTAL 50MG CAPSULE NG SCH ×2 (13:18→18:03)
[2023-02-18] MEDS: HYDRALAZINE HCL 100MG TABLET PO SCH (18:03)
[2023-02-19] VITALS (104 sets, daily range): BP systolic 102–165; BP diastolic 53–99; PULSE 89–131; RESP 10–28; TEMP 98.6–100.4
[2023-02-19] MEDS: METOCLOPRAMIDE HCL 10MG/2ML VIAL IV SCH ×4 (00:51→18:00)
[2023-02-19] MEDS: HYDRALAZINE HCL 100MG TABLET PO SCH ×3 (00:52→17:59)
[2023-02-19] MEDS: BLOOD SUGAR DIAGNOSTIC STRIP TEST SCH ×4 (00:52→18:17)
[2023-02-19] MEDS: INSULIN LISPRO 100 UNITS/ML SUBCUT SCH ×4 (00:53→18:17)
[2023-02-19 05:23] LABS: BASOPHILS % 0.2 % (0.0-2.0); DIFFERENTIAL COMMENT 0; EOSINOPHILS % 0.3 % (0.0-5.0); HEMATOCRIT. 38.5 % (36.0-48.0); HEMOGLOBIN. 12.2 g/dL (12.0-16.0); MEAN CORPUSCULAR HEMOGLOBIN 28.3 pg (28.0-32.0); MEAN CORPUSCULAR HGB CONC 31.5 g/dL (31.0-37.0); MEAN CORPUSCULAR VOLUME 89.6 fL (81.0-99.0); MEAN PLATELET VOLUME 9.7 fl (7.4-10.4); MONOCYTES % 7.2 % (2.0-8.0); NEUTROPHILS % 77.3 % (40.0-76.0); PLATELET 147 x1000/uL (130-400); RED CELL DISTRIBUTION WIDTH 15.4 % (11.6-14.6); WHITE BLOOD COUNT 18.1 x1000/uL (4.5-11.0)
[2023-02-19 05:35] LABS: CHLORIDE 118 mEq/L (98-107); INDEX HEMOLYSI 1 (1-3); INDEX ICTERIC 1 (1-4); INDEX LIPEMIC 1 (1-3); POTASSIUM 3.6 mEq/L (3.5-5.1); SODIUM 152 mEq/L (136-145)
[2023-02-19 05:44] LABS: CALCIUM 8.6 mg/dL (8.5-10.1); CARBON DIOXIDE 31 mEq/L (21-32); CREATININE 0.7 mg/dL (0.6-1.3); GLUCOSE 212 mg/dL (70-105); UREA NITROGEN BLOOD 35 mg/dL (7-21)
[2023-02-19] MEDS: NITROFURANTOIN MACROCRYSTAL 50MG CAPSULE NG SCH ×4 (06:00→17:59)
[2023-02-19] MEDS: LEVETIRACETAM 500MG PREMIX 100 ML IV SCH (08:42)
[2023-02-19] MEDS: DEXTROSE 5% WATER 1,000 ML IV SCH ×2 (08:43→17:59)
[2023-02-19] MEDS: AMLODIPINE 10MG TABLET PO SCH (08:44)
[2023-02-19] MEDS: DOCUSATE SODIUM SUGAR FREE 100MG/10ML UDC NG SCH (08:44)
[2023-02-19] MEDS: ACETAMINOPHEN 650MG/20.3ML UDC GT PRN (08:44)
[2023-02-19] MEDS: PANTOPRAZOLE SODIUM 40 MG/VIAL IV SCH (08:44)
[2023-02-19 09:25] LABS: BG BASE EXCESS 8.8 mmol/L (-2.0-2.0); BG CARBOXYHEMOGLOBIN 0.3 % (0.5-1.5); BG FRACTION INSPIRED OXYGEN 30; BG HCO3 ACT 32.4 mmol/L (22.0-26.0); BG METHEMOGLOBIN 0.3 % (0.0-1.5); BG OXYHEMOGLOBIN 96.4 % (94.0-97.0); BG PCO2 40.6 mmHg (35.0-45.0); BG PO2 85.3 mmHg (75.0-100.0); BG SAMPLE SITE RIGHT RADIAL; BG TOTAL HEMOGLOBIN 12.8 g/dL (12.0-18.0); BG VENT MODE VENT - AC
[2023-02-19] MEDS: INSULIN GLARGINE 100 UNITS/ML SUBCUT SCH ×2 (09:26→21:12)
[2023-02-19] MEDS: NICARDIPINE 100 MG in SODIUM CHLORIDE 0.9% 60 ML IV PRN ×2 (11:28→22:31)
[2023-02-19] MEDS ORDERED: PHENYTOIN SODIUM 500 MG in SODIUM CHLORIDE 0.9% 50 ML IV NR (14:00)
[2023-02-19] MEDS: PHENYTOIN SODIUM 100MG/2ML VIAL IV SCH (21:12)
[2023-02-19] MEDS: LEVETIRACETAM 1,000 MG in SODIUM CHLORIDE 0.9% 100 ML IV SCH (22:31)
[2023-02-19 22:37] LABS: INDEX HEMOLYSI 1 (1-3); INDEX ICTERIC 1 (1-4); INDEX LIPEMIC 1 (1-3)
[2023-02-19 22:45] LABS: IRON 28 ug/dL (50-175); TOTAL IRON BINDING CAPACITY 454 ug/dL (250-450)
[2023-02-19 23:34] LABS: FERRITIN 730 ng/mL (10-291)
[2023-02-19 23:44] LABS: VITAMIN B12 SERUM 935 pg/mL (211-911)
[2023-02-20] VITALS (104 sets, daily range): BP systolic 107–147; BP diastolic 55–77; PULSE 80–116; RESP 8–29; TEMP 97.8–100.1
[2023-02-20] MEDS: HYDRALAZINE HCL 100MG TABLET PO SCH ×3 (01:00→17:00)
[2023-02-20] MEDS: METOCLOPRAMIDE HCL 10MG/2ML VIAL IV SCH ×4 (01:23→17:33)
[2023-02-20] MEDS: INSULIN LISPRO 100 UNITS/ML SUBCUT SCH ×4 (01:23→17:33)
[2023-02-20] MEDS ORDERED: MANNITOL 20% (20GM/100ML) BAG 500ML PREMIX IV ONE (01:45)
[2023-02-20] MEDS ORDERED: MANNITOL 20% 125 ML IV NR (02:30)
[2023-02-20] MEDS: MORPHINE SULFATE 2 MG/ML CPJ (NOT FOR IM USE) IV PRN ×2 (03:15→17:33)
[2023-02-20] MEDS: DEXTROSE 5% WATER 1,000 ML IV SCH (03:16)
[2023-02-20 05:36] LABS: HEMATOCRIT. 36.8 % (36.0-48.0); HEMOGLOBIN. 11.7 g/dL (12.0-16.0); MEAN CORPUSCULAR HEMOGLOBIN 28.1 pg (28.0-32.0); MEAN CORPUSCULAR HGB CONC 31.7 g/dL (31.0-37.0); MEAN CORPUSCULAR VOLUME 88.7 fL (81.0-99.0); MEAN PLATELET VOLUME 10.1 fl (7.4-10.4); PLATELET 125 x1000/uL (130-400); RED BLOOD CELL COUNT 4.15 mill/uL (4.2-5.4); RED CELL DISTRIBUTION WIDTH 15.4 % (11.6-14.6); WHITE BLOOD COUNT 24.4 x1000/uL (4.5-11.0)
[2023-02-20] MEDS: NITROFURANTOIN MACROCRYSTAL 50MG CAPSULE NG SCH ×3 (05:39→11:48)
[2023-02-20] MEDS: BLOOD SUGAR DIAGNOSTIC STRIP TEST SCH ×4 (05:39→17:33)
[2023-02-20 05:49] LABS: CHLORIDE 112 mEq/L (98-107); INDEX HEMOLYSI 1 (1-3); INDEX ICTERIC 1 (1-4); INDEX LIPEMIC 1 (1-3); POTASSIUM 3.2 mEq/L (3.5-5.1); SODIUM 146 mEq/L (136-145)
[2023-02-20] MEDS: PHENYTOIN SODIUM 100MG/2ML VIAL IV SCH ×3 (05:59→21:08)
[2023-02-20] MEDS: NICARDIPINE 100 MG in SODIUM CHLORIDE 0.9% 60 ML IV PRN ×3 (05:59→21:08)
[2023-02-20 06:04] LABS: CALCIUM 8.6 mg/dL (8.5-10.1); CARBON DIOXIDE 29 mEq/L (21-32); CREATININE 0.9 mg/dL (0.6-1.3); UREA NITROGEN BLOOD 47 mg/dL (7-21)
[2023-02-20 06:10] LABS: DIFFERENTIAL COMMENT 1
[2023-02-20 08:09] LABS: GLUCOSE 457 mg/dL (70-105)
[2023-02-20 08:48] LABS: BG BASE EXCESS 4.6 mmol/L (-2.0-2.0); BG CARBOXYHEMOGLOBIN 0.4 % (0.5-1.5); BG DEOXYHEMOGLOBIN 1.7 % (0.0-5.0); BG HCO3 ACT 29.5 mmol/L (22.0-26.0); BG METHEMOGLOBIN 0.3 % (0.0-1.5); BG OXYGEN SATURATION 98.3 % (92.0-98.5); BG OXYHEMOGLOBIN 97.6 % (94.0-97.0); BG PCO2 44.7 mmHg (35.0-45.0); BG PH 7.437 (7.350-7.450); BG SAMPLE SITE RIGHT RADIAL; BG TOTAL HEMOGLOBIN 12.9 g/dL (12.0-18.0); BG TOTAL RESPIRATORY RATE 16 b/min; BG VENT MODE VENT - AC
[2023-02-20] MEDS: PANTOPRAZOLE SODIUM 40 MG/VIAL IV SCH (08:48)
[2023-02-20] MEDS: KCL 20MEQ/100ML PREMIX 100 ML IV SCH ×2 (08:49→11:46)
[2023-02-20] MEDS: AMLODIPINE 10MG TABLET PO SCH (08:49)
[2023-02-20] MEDS: DOCUSATE SODIUM SUGAR FREE 100MG/10ML UDC NG SCH (08:49)
[2023-02-20] MEDS: LEVETIRACETAM 1,000 MG in SODIUM CHLORIDE 0.9% 100 ML IV SCH ×2 (08:49→21:20)
[2023-02-20] MEDS: INSULIN GLARGINE 100 UNITS/ML SUBCUT SCH ×2 (10:00→21:08)
[2023-02-20] MEDS ORDERED: DEXT 5%/LACTATED RINGERS 1,000 ML IV SCH (11:15)
[2023-02-20] MEDS: LACTATED RINGERS 1,000 ML IV SCH (11:47)
[2023-02-20 14:50] LABS: ANISOCYTOSIS 1+; NUCLEATED RED BLOOD CELLS 1 /100 WBC; PLATELET ESTIMATE SLIGHTLY DECREASED
[2023-02-20] MEDS ORDERED: DIATR MEGLU/DIATRIZOATE SOLN 30ML PO NR (16:45)
[2023-02-20] MEDS: IRON SUCROSE COMPLEX 100 MG/5 ML ML IV SCH (17:32)
[2023-02-20] MEDS: METRONIDAZOLE 500 MG PREMIX 100 ML IV SCH (17:32)
[2023-02-20] MEDS: CEFEPIME 1,000 MG in DEXTROSE 5% WATER 50 ML IV SCH (17:32)
[2023-02-20] MEDS: MICAFUNGIN 100 MG in SODIUM CHLORIDE 0.9% 100 ML IV SCH (19:52)
[2023-02-21] VITALS (113 sets, daily range): BP systolic 110–137; BP diastolic 51–80; PULSE 79–130; RESP 10–32; TEMP 98.2–99.1
[2023-02-21] MEDS: HYDRALAZINE HCL 100MG TABLET PO SCH ×3 (01:00→17:00)
[2023-02-21] MEDS: METOCLOPRAMIDE HCL 10MG/2ML VIAL IV SCH ×4 (01:39→18:11)
[2023-02-21] MEDS: METRONIDAZOLE 500 MG PREMIX 100 ML IV SCH ×3 (01:41→16:52)
[2023-02-21] MEDS: NICARDIPINE 100 MG in SODIUM CHLORIDE 0.9% 60 ML IV PRN ×2 (04:15→11:47)
[2023-02-21] MEDS: PHENYTOIN SODIUM 100MG/2ML VIAL IV SCH ×3 (05:07→21:38)
[2023-02-21] MEDS: CEFEPIME 1,000 MG in DEXTROSE 5% WATER 50 ML IV SCH (05:07)
[2023-02-21] MEDS: BLOOD SUGAR DIAGNOSTIC STRIP TEST SCH ×4 (05:13→18:01)
[2023-02-21 05:53] LABS: CHLORIDE 117 mEq/L (98-107); INDEX HEMOLYSI 1 (1-3); INDEX ICTERIC 1 (1-4); INDEX LIPEMIC 1 (1-3); POTASSIUM 3.2 mEq/L (3.5-5.1); SODIUM 151 mEq/L (136-145)
[2023-02-21] MEDS: INSULIN LISPRO 100 UNITS/ML SUBCUT SCH ×4 (05:55→18:12)
[2023-02-21 05:58] LABS: CALCIUM 9.1 mg/dL (8.5-10.1); CARBON DIOXIDE 25 mEq/L (21-32); GLUCOSE 233 mg/dL (70-105); UREA NITROGEN BLOOD 54 mg/dL (7-21)
[2023-02-21 06:04] LABS: HEMATOCRIT. 37.1 % (36.0-48.0); HEMOGLOBIN. 11.8 g/dL (12.0-16.0); MEAN CORPUSCULAR HEMOGLOBIN 28.6 pg (28.0-32.0); MEAN CORPUSCULAR VOLUME 89.5 fL (81.0-99.0); MEAN PLATELET VOLUME 10.8 fl (7.4-10.4); PLATELET 96 x1000/uL (130-400); RED BLOOD CELL COUNT 4.14 mill/uL (4.2-5.4); RED CELL DISTRIBUTION WIDTH 15.6 % (11.6-14.6); WHITE BLOOD COUNT 25.9 x1000/uL (4.5-11.0)
[2023-02-21 06:23] LABS: DIFFERENTIAL COMMENT 1
[2023-02-21] MEDS: PANTOPRAZOLE SODIUM 40 MG/VIAL IV SCH (08:57)
[2023-02-21] MEDS: LEVETIRACETAM 1,000 MG in SODIUM CHLORIDE 0.9% 100 ML IV SCH ×2 (08:57→21:28)
[2023-02-21] MEDS: LACTATED RINGERS 1,000 ML IV SCH (08:59)
[2023-02-21] MEDS: AMLODIPINE 10MG TABLET PO SCH (09:00)
[2023-02-21] MEDS: DOCUSATE SODIUM SUGAR FREE 100MG/10ML UDC NG SCH (09:00)
[2023-02-21 09:08] LABS: BG BASE EXCESS -1.6 mmol/L (-2.0-2.0); BG CARBOXYHEMOGLOBIN 0.3 % (0.5-1.5); BG DEOXYHEMOGLOBIN 7.5 % (0.0-5.0); BG METHEMOGLOBIN 0.3 % (0.0-1.5); BG OXYGEN SATURATION 92.5 % (92.0-98.5); BG OXYHEMOGLOBIN 91.9 % (94.0-97.0); BG PCO2 28.9 mmHg (35.0-45.0); BG PH 7.479 (7.350-7.450); BG PO2 63.2 mmHg (75.0-100.0); BG SAMPLE SITE RIGHT BRACHIAL; BG TOTAL HEMOGLOBIN 11.7 g/dL (12.0-18.0); BG TOTAL RESPIRATORY RATE 28 b/min; BG VENT MODE VENT - AC
[2023-02-21] MEDS ORDERED: MIDAZOLAM HCL 5 MG/5 ML VIAL ONE (09:42)
[2023-02-21] MEDS ORDERED: ROCURONIUM BROMIDE 10MG/ML VIAL 5ML IV ONE (09:42)
[2023-02-21] MEDS ORDERED: PROPOFOL 200MG/20ML VIAL IV ONE (09:42)
[2023-02-21] MEDS ORDERED: EPHEDRINE SULFATE 50MG/ML VIAL ONE (09:45)
[2023-02-21] MEDS: INSULIN GLARGINE 100 UNITS/ML SUBCUT SCH ×2 (10:00→21:43)
[2023-02-21] MEDS ORDERED: POTASSIUM CHLORIDE INJ 40 MEQ in DEXT 5% WATER 250 ML IV SCH (10:00)
[2023-02-21 12:37] LABS: PLATELET ESTIMATE DECREASED
[2023-02-21 13:11] LABS: HIV SCREEN 4G Non Reactive (Non Reactive)
[2023-02-21] MEDS: IRON SUCROSE COMPLEX 100 MG/5 ML ML IV SCH (16:49)
[2023-02-21] MEDS: MICAFUNGIN 100 MG in SODIUM CHLORIDE 0.9% 100 ML IV SCH (16:51)
[2023-02-21] MEDS: CEFEPIME 2,000 MG in DEXT 5% WATER 100 ML IV SCH (18:12)
[2023-02-22] VITALS (104 sets, daily range): BP systolic 94–147; BP diastolic 48–83; PULSE 94–114; RESP 11–40; TEMP 97.9–99.3
[2023-02-22] MEDS: METOCLOPRAMIDE HCL 10MG/2ML VIAL IV SCH ×5 (00:06→23:16)
[2023-02-22] MEDS: INSULIN LISPRO 100 UNITS/ML SUBCUT SCH ×4 (00:07→18:06)
[2023-02-22] MEDS: BLOOD SUGAR DIAGNOSTIC STRIP TEST SCH ×4 (00:07→18:03)
[2023-02-22] MEDS: HYDRALAZINE HCL 100MG TABLET PO SCH (00:42)
[2023-02-22] MEDS: METRONIDAZOLE 500 MG PREMIX 100 ML IV SCH ×3 (01:34→17:04)
[2023-02-22] MEDS: MORPHINE SULFATE 2 MG/ML CPJ (NOT FOR IM USE) IV PRN (02:07)
[2023-02-22] MEDS: CEFEPIME 2,000 MG in DEXT 5% WATER 100 ML IV SCH ×2 (05:04→18:06)
[2023-02-22] MEDS: PHENYTOIN SODIUM 100MG/2ML VIAL IV SCH ×3 (05:04→22:53)
[2023-02-22] MEDS: LACTATED RINGERS 1,000 ML IV SCH ×3 (05:05→20:05)
[2023-02-22 05:56] LABS: CHLORIDE 126 mEq/L (98-107); INDEX HEMOLYSI 1 (1-3); INDEX ICTERIC 1 (1-4); INDEX LIPEMIC 1 (1-3); POTASSIUM 3.1 mEq/L (3.5-5.1)
[2023-02-22 06:02] LABS: CALCIUM 8.7 mg/dL (8.5-10.1); CARBON DIOXIDE 24 mEq/L (21-32); CREATININE 0.9 mg/dL (0.6-1.3); GLUCOSE 239 mg/dL (70-105); UREA NITROGEN BLOOD 52 mg/dL (7-21)
[2023-02-22 06:09] LABS: HEMATOCRIT. 29.9 % (36.0-48.0); HEMOGLOBIN. 9.6 g/dL (12.0-16.0); MEAN CORPUSCULAR HEMOGLOBIN 28.5 pg (28.0-32.0); MEAN CORPUSCULAR HGB CONC 32.2 g/dL (31.0-37.0); MEAN CORPUSCULAR VOLUME 88.5 fL (81.0-99.0); MEAN PLATELET VOLUME 11.4 fl (7.4-10.4); PLATELET 92 x1000/uL (130-400); RED BLOOD CELL COUNT 3.38 mill/uL (4.2-5.4); RED CELL DISTRIBUTION WIDTH 15.5 % (11.6-14.6); WHITE BLOOD COUNT 16.6 x1000/uL (4.5-11.0)
[2023-02-22 06:28] LABS: SODIUM 156 mEq/L (136-145)
[2023-02-22 07:06] LABS: DIFFERENTIAL COMMENT 1
[2023-02-22] MEDS ORDERED: DEXTROSE 5% WATER 1,000 ML IV SCH (07:45)
[2023-02-22] MEDS ORDERED: POTASSIUM CHLORIDE INJ 40 MEQ in DEXT 5% WATER 250 ML IV ONE (07:45)
[2023-02-22 08:02] LABS: BG BASE EXCESS 2.6 mmol/L (-2.0-2.0); BG CARBOXYHEMOGLOBIN 0.1 % (0.5-1.5); BG DEOXYHEMOGLOBIN 5.8 % (0.0-5.0); BG FRACTION INSPIRED OXYGEN 30; BG HCO3 ACT 24.8 mmol/L (22.0-26.0); BG METHEMOGLOBIN 0.1 % (0.0-1.5); BG OXYGEN SATURATION 94.2 % (92.0-98.5); BG PCO2 30.1 mmHg (35.0-45.0); BG PH 7.533 (7.350-7.450); BG PO2 65.8 mmHg (75.0-100.0); BG SAMPLE SITE RIGHT RADIAL; BG TOTAL HEMOGLOBIN 11.4 g/dL (12.0-18.0); BG TOTAL RESPIRATORY RATE 30 b/min; BG VENT MODE VENT - AC
[2023-02-22] MEDS: AMLODIPINE 10MG TABLET PO SCH (09:09)
[2023-02-22] MEDS: KCL 20MEQ/100ML X 2 FOR TOTAL KCL 40MEQ/200ML IV SCH ×2 (09:09→11:44)
[2023-02-22] MEDS: PANTOPRAZOLE SODIUM 40 MG/VIAL IV SCH (09:09)
[2023-02-22] MEDS: DOCUSATE SODIUM SUGAR FREE 100MG/10ML UDC NG SCH (09:09)
[2023-02-22] MEDS: LEVETIRACETAM 1,000 MG in SODIUM CHLORIDE 0.9% 100 ML IV SCH ×2 (09:11→20:49)
[2023-02-22] MEDS ORDERED: NALOXONE HCL 0.4MG/ML VIAL IV PRN (11:30)
[2023-02-22] MEDS: HYDRALAZINE 20MG/ML VIAL IV SCH ×3 (11:44→23:16)
[2023-02-22] MEDS: INSULIN GLARGINE 100 UNITS/ML SUBCUT SCH ×2 (11:44→23:34)
[2023-02-22] MEDS: MICAFUNGIN 100 MG in SODIUM CHLORIDE 0.9% 100 ML IV SCH (16:54)
[2023-02-22] MEDS: IRON SUCROSE COMPLEX 100 MG/5 ML ML IV SCH (16:54)
[2023-02-22 18:48] LABS: PLATELET ESTIMATE DECREASED
[2023-02-23] VITALS (61 sets, daily range): BP systolic 121–153; BP diastolic 55–99; PULSE 89–111; RESP 22–47; TEMP 97.2–98.2
[2023-02-23] MEDS: BLOOD SUGAR DIAGNOSTIC STRIP TEST SCH ×4 (00:23→17:08)
[2023-02-23] MEDS: INSULIN LISPRO 100 UNITS/ML SUBCUT SCH ×4 (00:34→17:13)
[2023-02-23] MEDS: METRONIDAZOLE 500 MG PREMIX 100 ML IV SCH ×3 (00:36→16:56)
[2023-02-23 05:47] LABS: BASOPHILS % 0.2 % (0.0-2.0); DIFFERENTIAL COMMENT 0; EOSINOPHILS % 0.1 % (0.0-5.0); HEMATOCRIT. 31.6 % (36.0-48.0); HEMOGLOBIN. 10.2 g/dL (12.0-16.0); LYMPHOCYTES % 8.6 % (20.0-50.0); MEAN CORPUSCULAR HEMOGLOBIN 28.3 pg (28.0-32.0); MEAN CORPUSCULAR HGB CONC 32.5 g/dL (31.0-37.0); MEAN PLATELET VOLUME 11.7 fl (7.4-10.4); MONOCYTES % 2.9 % (2.0-8.0); NEUTROPHILS % 88.2 % (40.0-76.0); PLATELET 104 x1000/uL (130-400); RED BLOOD CELL COUNT 3.63 mill/uL (4.2-5.4); RED CELL DISTRIBUTION WIDTH 15.6 % (11.6-14.6); WHITE BLOOD COUNT 16.7 x1000/uL (4.5-11.0)
[2023-02-23 05:52] LABS: POTASSIUM 3.2 mEq/L (3.5-5.1)
[2023-02-23 05:57] LABS: CALCIUM 8.8 mg/dL (8.5-10.1); CREATININE 1.3 mg/dL (0.6-1.3)
[2023-02-23] MEDS: HYDRALAZINE 20MG/ML VIAL IV SCH ×3 (06:28→17:11)
[2023-02-23] MEDS: METOCLOPRAMIDE HCL 10MG/2ML VIAL IV SCH ×3 (06:29→17:11)
[2023-02-23] MEDS: PHENYTOIN SODIUM 100MG/2ML VIAL IV SCH ×3 (06:29→22:00)
[2023-02-23] MEDS: CEFEPIME 2,000 MG in DEXT 5% WATER 100 ML IV SCH ×2 (06:29→17:15)
[2023-02-23] MEDS: LACTATED RINGERS 1,000 ML IV SCH (06:55)
[2023-02-23] MEDS ORDERED: POTASSIUM CHLORIDE INJ 40 MEQ in DEXT 5% WATER 250 ML IV ONE (07:30)
[2023-02-23 08:00] LABS: BG BASE EXCESS 1.5 mmol/L (-2.0-2.0); BG CARBOXYHEMOGLOBIN 0.3 % (0.5-1.5); BG DEOXYHEMOGLOBIN 8.9 % (0.0-5.0); BG METHEMOGLOBIN 0.2 % (0.0-1.5); BG OXYGEN SATURATION 91.1 % (92.0-98.5); BG OXYHEMOGLOBIN 90.6 % (94.0-97.0); BG PCO2 23.6 mmHg (35.0-45.0); BG PH 7.588 (7.350-7.450); BG PO2 51.6 mmHg (75.0-100.0); BG SAMPLE SITE RIGHT RADIAL; BG TOTAL HEMOGLOBIN 11.4 g/dL (12.0-18.0); BG VENT MODE VENT - AC
[2023-02-23] MEDS: LEVETIRACETAM 1,000 MG in SODIUM CHLORIDE 0.9% 100 ML IV SCH ×2 (09:36→22:36)
[2023-02-23] MEDS: PANTOPRAZOLE SODIUM 40 MG/VIAL IV SCH (09:38)
[2023-02-23] MEDS: DOCUSATE SODIUM SUGAR FREE 100MG/10ML UDC NG SCH (09:38)
[2023-02-23] MEDS: KCL 20MEQ/100ML X 2 FOR TOTAL KCL 40MEQ/200ML IV SCH ×2 (09:38→11:28)
[2023-02-23] MEDS: AMLODIPINE 10MG TABLET PO SCH (09:40)
[2023-02-23] MEDS: IPRATROPIUM BROMIDE (0.02%) 0.5MG/2.5ML NEB HHN SCH ×3 (09:41→20:21)
[2023-02-23] MEDS: INSULIN GLARGINE 100 UNITS/ML SUBCUT SCH ×2 (09:43→22:02)
[2023-02-23] MEDS: MICAFUNGIN 100 MG in SODIUM CHLORIDE 0.9% 100 ML IV SCH (16:55)
[2023-02-24] VITALS (24 sets, daily range): BP systolic 95–136; BP diastolic 50–83; PULSE 67–91; RESP 4–34; TEMP 97.5–97.7
[2023-02-24] MEDS: METOCLOPRAMIDE HCL 10MG/2ML VIAL IV SCH ×4 (00:39→18:00)
[2023-02-24] MEDS: HYDRALAZINE 20MG/ML VIAL IV SCH ×5 (00:39→17:34)
[2023-02-24] MEDS: BLOOD SUGAR DIAGNOSTIC STRIP TEST SCH ×4 (00:40→17:42)
[2023-02-24] MEDS: METRONIDAZOLE 500 MG PREMIX 100 ML IV SCH ×3 (01:30→16:52)
[2023-02-24] MEDS: IPRATROPIUM BROMIDE (0.02%) 0.5MG/2.5ML NEB HHN SCH ×4 (02:06→20:14)
[2023-02-24] MEDS: INSULIN LISPRO 100 UNITS/ML SUBCUT SCH ×4 (06:00→17:42)
[2023-02-24] MEDS: PHENYTOIN SODIUM 100MG/2ML VIAL IV SCH ×3 (06:46→22:45)
[2023-02-24] MEDS: CEFEPIME 2,000 MG in DEXT 5% WATER 100 ML IV SCH ×2 (06:46→18:01)
[2023-02-24] MEDS: LACTATED RINGERS 1,000 ML IV SCH (06:58)
[2023-02-24 07:42] LABS: BASOPHILS % 0.2 % (0.0-2.0); DIFFERENTIAL COMMENT 0; EOSINOPHILS % 0.4 % (0.0-5.0); HEMATOCRIT. 29.8 % (36.0-48.0); HEMOGLOBIN. 9.7 g/dL (12.0-16.0); LYMPHOCYTES % 8.3 % (20.0-50.0); MEAN CORPUSCULAR HEMOGLOBIN 28.8 pg (28.0-32.0); MEAN CORPUSCULAR HGB CONC 32.7 g/dL (31.0-37.0); MEAN CORPUSCULAR VOLUME 87.9 fL (81.0-99.0); MEAN PLATELET VOLUME 11.8 fl (7.4-10.4); MONOCYTES % 2.4 % (2.0-8.0); NEUTROPHILS % 88.7 % (40.0-76.0); PLATELET 89 x1000/uL (130-400); RED BLOOD CELL COUNT 3.39 mill/uL (4.2-5.4); RED CELL DISTRIBUTION WIDTH 16.1 % (11.6-14.6); WHITE BLOOD COUNT 13.8 x1000/uL (4.5-11.0)
[2023-02-24 07:46] LABS: POTASSIUM 3.5 mEq/L (3.5-5.1)
[2023-02-24] MEDS: LEVETIRACETAM 1,000 MG in SODIUM CHLORIDE 0.9% 100 ML IV SCH ×2 (09:14→22:45)
[2023-02-24] MEDS: PANTOPRAZOLE SODIUM 40 MG/VIAL IV SCH (09:14)
[2023-02-24] MEDS: AMLODIPINE 10MG TABLET PO SCH (09:15)
[2023-02-24 09:23] LABS: CALCIUM 8.6 mg/dL (8.5-10.1); CREATININE 1.4 mg/dL (0.6-1.3)
[2023-02-24 10:22] LABS: BG BASE EXCESS -2.2 mmol/L (-2.0-2.0); BG CARBOXYHEMOGLOBIN 0.2 % (0.5-1.5); BG FRACTION INSPIRED OXYGEN 45; BG HCO3 ACT 21.1 mmol/L (22.0-26.0); BG METHEMOGLOBIN 0.3 % (0.0-1.5); BG OXYHEMOGLOBIN 91.5 % (94.0-97.0); BG PCO2 31.3 mmHg (35.0-45.0); BG PH 7.446 (7.350-7.450); BG PO2 64.9 mmHg (75.0-100.0); BG SAMPLE SITE RIGHT RADIAL; BG TOTAL HEMOGLOBIN 11.3 g/dL (12.0-18.0); BG VENT MODE VENT - AC
[2023-02-24] MEDS: INSULIN GLARGINE 100 UNITS/ML SUBCUT SCH ×2 (10:43→22:46)
[2023-02-24] MEDS: DEXTROSE 5% WATER 1,000 ML IV SCH (12:16)
[2023-02-24] MEDS: MICAFUNGIN 100 MG in SODIUM CHLORIDE 0.9% 100 ML IV SCH (17:07)
[2023-02-25] VITALS (22 sets, daily range): BP systolic 92–159; BP diastolic 47–85; PULSE 60–81; RESP 2–37; TEMP 97–99.6
[2023-02-25] MEDS: METOCLOPRAMIDE HCL 10MG/2ML VIAL IV SCH ×4 (00:36→17:24)
[2023-02-25] MEDS: BLOOD SUGAR DIAGNOSTIC STRIP TEST SCH ×4 (00:36→17:10)
[2023-02-25] MEDS: IPRATROPIUM BROMIDE (0.02%) 0.5MG/2.5ML NEB HHN SCH ×4 (00:47→20:02)
[2023-02-25] MEDS: METRONIDAZOLE 500 MG PREMIX 100 ML IV SCH ×3 (01:56→16:46)
[2023-02-25] MEDS: INSULIN LISPRO 100 UNITS/ML SUBCUT SCH ×4 (06:00→17:25)
[2023-02-25 06:17] LABS: CHLORIDE 130 mEq/L (98-107); INDEX HEMOLYSI 1 (1-3); INDEX ICTERIC 1 (1-4); INDEX LIPEMIC 1 (1-3); POTASSIUM 3.2 mEq/L (3.5-5.1)
[2023-02-25 06:23] LABS: HEMOGLOBIN. 9.8 g/dL (12.0-16.0); MEAN CORPUSCULAR HEMOGLOBIN 28.7 pg (28.0-32.0); MEAN CORPUSCULAR HGB CONC 32.6 g/dL (31.0-37.0); MEAN CORPUSCULAR VOLUME 88.1 fL (81.0-99.0); MEAN PLATELET VOLUME 11.4 fl (7.4-10.4); PLATELET 88 x1000/uL (130-400); RED CELL DISTRIBUTION WIDTH 16.4 % (11.6-14.6); WHITE BLOOD COUNT 13.9 x1000/uL (4.5-11.0)
[2023-02-25 06:26] LABS: CALCIUM 8.4 mg/dL (8.5-10.1); CARBON DIOXIDE 25 mEq/L (21-32); GLUCOSE 152 mg/dL (70-105); UREA NITROGEN BLOOD 67 mg/dL (7-21)
[2023-02-25 06:46] LABS: DIFFERENTIAL COMMENT 1
[2023-02-25] MEDS: HYDRALAZINE 20MG/ML VIAL IV SCH ×4 (06:55→17:10)
[2023-02-25] MEDS: PHENYTOIN SODIUM 100MG/2ML VIAL IV SCH ×3 (06:55→22:45)
[2023-02-25] MEDS: CEFEPIME 2,000 MG in DEXT 5% WATER 100 ML IV SCH ×2 (06:56→18:43)
[2023-02-25] MEDS: DEXTROSE 5% WATER 1,000 ML IV SCH ×2 (06:56→17:24)
[2023-02-25 07:00] LABS: SODIUM 160 mEq/L (136-145)
[2023-02-25] MEDS: AMLODIPINE 10MG TABLET PO SCH (09:00)
[2023-02-25] MEDS: PANTOPRAZOLE SODIUM 40 MG/VIAL IV SCH (09:17)
[2023-02-25] MEDS: LEVETIRACETAM 1,000 MG in SODIUM CHLORIDE 0.9% 100 ML IV SCH ×2 (09:17→21:55)
[2023-02-25] MEDS ORDERED: POTASSIUM CHLORIDE 20MEQ TABLET SR PO NR (11:00)
[2023-02-25] MEDS: INSULIN GLARGINE 100 UNITS/ML SUBCUT SCH ×2 (11:22→22:52)
[2023-02-25] MEDS: MICAFUNGIN 100 MG in SODIUM CHLORIDE 0.9% 100 ML IV SCH (17:24)
[2023-02-25 17:28] LABS: PLATELET ESTIMATE DECREASED
[2023-02-26] VITALS (22 sets, daily range): BP systolic 91–138; BP diastolic 42–75; PULSE 60–98; RESP 17–32; TEMP 97.4–97.8
[2023-02-26] MEDS: IPRATROPIUM BROMIDE (0.02%) 0.5MG/2.5ML NEB HHN SCH ×4 (00:58→21:45)
[2023-02-26] MEDS: METOCLOPRAMIDE HCL 10MG/2ML VIAL IV SCH ×5 (01:08→23:30)
[2023-02-26] MEDS: INSULIN LISPRO 100 UNITS/ML SUBCUT SCH ×5 (01:08→23:28)
[2023-02-26] MEDS: DEXTROSE 5% WATER 1,000 ML IV SCH ×4 (01:09→20:31)
[2023-02-26 06:13] LABS: HEMATOCRIT. 28.5 % (36.0-48.0); HEMOGLOBIN. 9.2 g/dL (12.0-16.0); MEAN CORPUSCULAR HEMOGLOBIN 28.8 pg (28.0-32.0); MEAN CORPUSCULAR HGB CONC 32.2 g/dL (31.0-37.0); MEAN CORPUSCULAR VOLUME 89.3 fL (81.0-99.0); MEAN PLATELET VOLUME 11.2 fl (7.4-10.4); PLATELET 89 x1000/uL (130-400); RED BLOOD CELL COUNT 3.19 mill/uL (4.2-5.4); RED CELL DISTRIBUTION WIDTH 16.3 % (11.6-14.6); WHITE BLOOD COUNT 10.7 x1000/uL (4.5-11.0)
[2023-02-26] MEDS: BLOOD SUGAR DIAGNOSTIC STRIP TEST SCH ×5 (06:55→23:14)
[2023-02-26] MEDS: PHENYTOIN SODIUM 100MG/2ML VIAL IV SCH ×3 (06:55→20:33)
[2023-02-26] MEDS: CEFEPIME 2,000 MG in DEXT 5% WATER 100 ML IV SCH ×2 (06:55→18:18)
[2023-02-26] MEDS: HYDRALAZINE 20MG/ML VIAL IV SCH ×5 (06:56→23:29)
[2023-02-26 07:15] LABS: DIFFERENTIAL COMMENT 1
[2023-02-26 07:52] LABS: CHLORIDE 130 mEq/L (98-107); INDEX HEMOLYSI 1 (1-3); INDEX ICTERIC 1 (1-4); INDEX LIPEMIC 1 (1-3)
[2023-02-26 08:02] LABS: ALANINE AMINOTRANSFERASE 22 IU/L (13-61); ALBUMIN 1.3 g/dL (3.4-5.0); ASPARTATE AMINOTRANSFERASE 17 IU/L (15-37); BILIRUBIN TOTAL 0.2 mg/dL (0.1-1.0); CALCIUM 7.9 mg/dL (8.5-10.1); CARBON DIOXIDE 27 mEq/L (21-32); CREATININE 0.8 mg/dL (0.6-1.3); GLUCOSE 145 mg/dL (70-105); PHOSPHORUS 2.7 mg/dL (2.5-4.9); PROTEIN TOTAL 5.6 g/dL (6.0-8.3); UREA NITROGEN BLOOD 50 mg/dL (7-21)
[2023-02-26 09:02] LABS: SODIUM 156 mEq/L (136-145)
[2023-02-26] MEDS: LEVETIRACETAM 1,000 MG in SODIUM CHLORIDE 0.9% 100 ML IV SCH ×2 (09:26→20:33)
[2023-02-26] MEDS: AMLODIPINE 10MG TABLET PO SCH (09:27)
[2023-02-26] MEDS: INSULIN GLARGINE 100 UNITS/ML SUBCUT SCH ×2 (09:28→23:28)
[2023-02-26] MEDS ORDERED: POTASSIUM CHLORIDE INJ 40 MEQ in DEXT 5% WATER 250 ML IV ONE (12:30)
[2023-02-26] MEDS: MIDODRINE HCL 5MG TABLET PO SCH ×2 (13:06→16:14)
[2023-02-26] MEDS: KCL 20MEQ/100ML X 2 FOR TOTAL KCL 40MEQ/200ML IV SCH ×2 (14:06→16:13)
[2023-02-26 20:39] LABS: ANISOCYTOSIS 1+; PLATELET ESTIMATE DECREASED
[2023-02-27] VITALS (26 sets, daily range): BP systolic 63–132; BP diastolic 31–75; PULSE 60–120; RESP 1–69; TEMP 93.7–98
[2023-02-27] MEDS: IPRATROPIUM BROMIDE (0.02%) 0.5MG/2.5ML NEB HHN SCH ×4 (01:35→21:00)
[2023-02-27] MEDS: METOCLOPRAMIDE HCL 10MG/2ML VIAL IV SCH ×4 (04:55→22:55)
[2023-02-27] MEDS: PHENYTOIN SODIUM 100MG/2ML VIAL IV SCH ×3 (04:55→21:48)
[2023-02-27] MEDS: CEFEPIME 2,000 MG in DEXT 5% WATER 100 ML IV SCH ×2 (04:56→17:32)
[2023-02-27] MEDS: DEXTROSE 5% WATER 1,000 ML IV SCH ×4 (04:57→22:46)
[2023-02-27] MEDS: HYDRALAZINE 20MG/ML VIAL IV SCH (05:02)
[2023-02-27] MEDS: BLOOD SUGAR DIAGNOSTIC STRIP TEST SCH ×4 (05:03→23:07)
[2023-02-27] MEDS: INSULIN LISPRO 100 UNITS/ML SUBCUT SCH ×4 (05:25→23:07)
[2023-02-27 07:09] LABS: BASOPHILS % 0.4 % (0.0-2.0); EOSINOPHILS % 1.6 % (0.0-5.0); HEMATOCRIT. 27.5 % (36.0-48.0); HEMOGLOBIN. 8.9 g/dL (12.0-16.0); LYMPHOCYTES % 19.1 % (20.0-50.0); MEAN CORPUSCULAR HGB CONC 32.3 g/dL (31.0-37.0); MEAN CORPUSCULAR VOLUME 89.8 fL (81.0-99.0); MEAN PLATELET VOLUME 11.5 fl (7.4-10.4); MONOCYTES % 1.9 % (2.0-8.0); PLATELET 91 x1000/uL (130-400); RED BLOOD CELL COUNT 3.06 mill/uL (4.2-5.4); RED CELL DISTRIBUTION WIDTH 16.4 % (11.6-14.6); WHITE BLOOD COUNT 8.5 x1000/uL (4.5-11.0)
[2023-02-27 09:38] LABS: CHLORIDE 124 mEq/L (98-107); INDEX HEMOLYSI 1 (1-3); INDEX ICTERIC 1 (1-4); INDEX LIPEMIC 1 (1-3); POTASSIUM 3.1 mEq/L (3.5-5.1); SODIUM 151 mEq/L (136-145)
[2023-02-27 10:00] LABS: CALCIUM 7.5 mg/dL (8.5-10.1); CARBON DIOXIDE 23 mEq/L (21-32); CREATININE 0.7 mg/dL (0.6-1.3); GLUCOSE 265 mg/dL (70-105); PHOSPHORUS 1.8 mg/dL (2.5-4.9); UREA NITROGEN BLOOD 29 mg/dL (7-21)
[2023-02-27] MEDS: LEVETIRACETAM 1,000 MG in SODIUM CHLORIDE 0.9% 100 ML IV SCH ×2 (10:18→20:45)
[2023-02-27] MEDS: MIDODRINE HCL 5MG TABLET PO SCH ×3 (10:18→20:15)
[2023-02-27] MEDS: INSULIN GLARGINE 100 UNITS/ML SUBCUT SCH ×2 (10:19→22:00)
[2023-02-27] MEDS ORDERED: POTASSIUM PHOS,M-BASIC-D-BASIC 20 MMOL in DEXT 5% WATER 243.3333 ML IV NR (11:30)
[2023-02-27] MEDS ORDERED: SODIUM CHLORIDE 0.9% 500 ML IV SCH ×2 (11:50→12:00)
[2023-02-27] MEDS: DOPAMINE 400MG/250ML PREMIX 250 ML IV SCH (14:16)
[2023-02-27 16:12] LABS: BG BASE EXCESS 0.5 mmol/L (-2.0-2.0); BG CARBOXYHEMOGLOBIN 0.2 % (0.5-1.5); BG DEOXYHEMOGLOBIN 11.4 % (0.0-5.0); BG HCO3 ACT 23.9 mmol/L (22.0-26.0); BG METHEMOGLOBIN 0.1 % (0.0-1.5); BG OXYGEN SATURATION 88.6 % (92.0-98.5); BG OXYHEMOGLOBIN 88.3 % (94.0-97.0); BG PCO2 34.6 mmHg (35.0-45.0); BG PH 7.458 (7.350-7.450); BG PO2 51.1 mmHg (75.0-100.0); BG SAMPLE SITE RIGHT RADIAL; BG TOTAL HEMOGLOBIN 12.2 g/dL (12.0-18.0); BG VENT MODE VENT - AC
[2023-02-28] VITALS (24 sets, daily range): BP systolic 83–153; BP diastolic 42–87; PULSE 73–103; RESP 10–32; TEMP 97.2–98.9
[2023-02-28] MEDS: IPRATROPIUM BROMIDE (0.02%) 0.5MG/2.5ML NEB HHN SCH ×2 (02:53→08:34)
[2023-02-28] MEDS: DOPAMINE 400MG/250ML PREMIX 250 ML IV SCH ×3 (03:57→21:33)
[2023-02-28] MEDS: DEXTROSE 5% WATER 1,000 ML IV SCH ×3 (03:58→17:59)
[2023-02-28] MEDS: CEFEPIME 2,000 MG in DEXT 5% WATER 100 ML IV SCH ×2 (04:12→17:50)
[2023-02-28] MEDS: PHENYTOIN SODIUM 100MG/2ML VIAL IV SCH ×3 (04:52→21:33)
[2023-02-28] MEDS: METOCLOPRAMIDE HCL 10MG/2ML VIAL IV SCH ×4 (04:52→23:30)
[2023-02-28] MEDS: BLOOD SUGAR DIAGNOSTIC STRIP TEST SCH ×4 (05:00→23:31)
[2023-02-28] MEDS: INSULIN LISPRO 100 UNITS/ML SUBCUT SCH ×4 (05:01→23:31)
[2023-02-28 07:39] LABS: INR 1.1; PROTHROMBIN TIME 11.7 sec (9.6-11.0)
[2023-02-28 07:47] LABS: BASOPHILS % 0.5 % (0.0-2.0); EOSINOPHILS % 1.5 % (0.0-5.0); HEMATOCRIT. 32.6 % (36.0-48.0); HEMOGLOBIN. 10.6 g/dL (12.0-16.0); LYMPHOCYTES % 12.9 % (20.0-50.0); MEAN CORPUSCULAR HEMOGLOBIN 28.9 pg (28.0-32.0); MEAN CORPUSCULAR HGB CONC 32.6 g/dL (31.0-37.0); MEAN CORPUSCULAR VOLUME 88.8 fL (81.0-99.0); MEAN PLATELET VOLUME 11.1 fl (7.4-10.4); MONOCYTES % 2.5 % (2.0-8.0); NEUTROPHILS % 82.6 % (40.0-76.0); PLATELET 117 x1000/uL (130-400); RED BLOOD CELL COUNT 3.67 mill/uL (4.2-5.4); RED CELL DISTRIBUTION WIDTH 16.1 % (11.6-14.6)
[2023-02-28 08:52] LABS: BG BASE EXCESS 1.2 mmol/L (-2.0-2.0); BG CARBOXYHEMOGLOBIN 0.3 % (0.5-1.5); BG DEOXYHEMOGLOBIN 2.6 % (0.0-5.0); BG FRACTION INSPIRED OXYGEN 35; BG HCO3 ACT 24.7 mmol/L (22.0-26.0); BG METHEMOGLOBIN 0.3 % (0.0-1.5); BG OXYGEN SATURATION 97.4 % (92.0-98.5); BG OXYHEMOGLOBIN 96.8 % (94.0-97.0); BG PCO2 35.4 mmHg (35.0-45.0); BG PH 7.462 (7.350-7.450); BG PO2 103.1 mmHg (75.0-100.0); BG SAMPLE SITE RIGHT RADIAL; BG TOTAL HEMOGLOBIN 10.8 g/dL (12.0-18.0); BG VENT MODE VENT - AC/VC
[2023-02-28 09:09] LABS: CHLORIDE 128 mEq/L (98-107); INDEX HEMOLYSI 1 (1-3); INDEX ICTERIC 1 (1-4); INDEX LIPEMIC 1 (1-3); POTASSIUM 3.3 mEq/L (3.5-5.1)
[2023-02-28 09:17] LABS: CALCIUM 8.3 mg/dL (8.5-10.1); CARBON DIOXIDE 24 mEq/L (21-32); CREATININE 0.6 mg/dL (0.6-1.3); GLUCOSE 228 mg/dL (70-105); PHOSPHORUS 2.7 mg/dL (2.5-4.9); UREA NITROGEN BLOOD 22 mg/dL (7-21)
[2023-02-28] MEDS: MIDODRINE HCL 5MG TABLET PO SCH ×3 (09:52→17:50)
[2023-02-28] MEDS: LEVETIRACETAM 1,000 MG in SODIUM CHLORIDE 0.9% 100 ML IV SCH ×2 (09:53→21:32)
[2023-02-28] MEDS: INSULIN GLARGINE 100 UNITS/ML SUBCUT SCH ×2 (09:54→23:30)
[2023-02-28] MEDS ORDERED: CEFAZOLIN 1000MG PREMIX 50 ML IV PRN (10:00)
[2023-02-28 10:08] LABS: SODIUM 158 mEq/L (136-145)
[2023-02-28] MEDS ORDERED: DEXAMETHASONE 4MG/ML 1ML VIAL ONE (11:19)
[2023-02-28] MEDS ORDERED: PROPOFOL 200MG/20ML VIAL IV ONE (11:19)
[2023-02-28] MEDS ORDERED: ONDANSETRON HCL 4MG/2ML INJ ONE (11:19)
[2023-02-28] MEDS ORDERED: POTASSIUM CHLORIDE INJ 40 MEQ in DEXT 5% WATER 250 ML IV NR (14:30)
[2023-03-01] VITALS (84 sets, daily range): BP systolic 57–189; BP diastolic 32–121; PULSE 80–135; RESP 4–35; TEMP 97.6–98.2
[2023-03-01] MEDS: DEXTROSE 5% WATER 1,000 ML IV SCH ×4 (02:10→21:13)
[2023-03-01 05:55] LABS: BASOPHILS % 0.4 % (0.0-2.0); EOSINOPHILS % 0.8 % (0.0-5.0); HEMATOCRIT. 33.6 % (36.0-48.0); HEMOGLOBIN. 10.5 g/dL (12.0-16.0); LYMPHOCYTES % 21.7 % (20.0-50.0); MEAN CORPUSCULAR HGB CONC 31.3 g/dL (31.0-37.0); MEAN CORPUSCULAR VOLUME 89.4 fL (81.0-99.0); MEAN PLATELET VOLUME 10.9 fl (7.4-10.4); MONOCYTES % 2.7 % (2.0-8.0); NEUTROPHILS % 74.4 % (40.0-76.0); PLATELET 130 x1000/uL (130-400); RED BLOOD CELL COUNT 3.76 mill/uL (4.2-5.4); WHITE BLOOD COUNT 13.1 x1000/uL (4.5-11.0)
[2023-03-01] MEDS: BLOOD SUGAR DIAGNOSTIC STRIP TEST SCH ×3 (06:00→17:33)
[2023-03-01 06:05] LABS: CHLORIDE 141 mEq/L (98-107); INDEX HEMOLYSI 3 (1-3); INDEX ICTERIC 1 (1-4); INDEX LIPEMIC 1 (1-3); POTASSIUM 3.4 mEq/L (3.5-5.1)
[2023-03-01 06:11] LABS: CALCIUM 8.7 mg/dL (8.5-10.1); CARBON DIOXIDE 28 mEq/L (21-32); CREATININE 0.8 mg/dL (0.6-1.3); GLUCOSE 171 mg/dL (70-105); PHOSPHORUS 2.5 mg/dL (2.5-4.9); UREA NITROGEN BLOOD 19 mg/dL (7-21)
[2023-03-01] MEDS: METOCLOPRAMIDE HCL 10MG/2ML VIAL IV SCH ×3 (06:14→17:33)
[2023-03-01] MEDS: PHENYTOIN SODIUM 100MG/2ML VIAL IV SCH ×3 (06:15→22:27)
[2023-03-01] MEDS: CEFEPIME 2,000 MG in DEXT 5% WATER 100 ML IV SCH ×2 (06:15→17:33)
[2023-03-01] MEDS: INSULIN LISPRO 100 UNITS/ML SUBCUT SCH ×3 (06:16→18:59)
[2023-03-01] MEDS: DOPAMINE 400MG/250ML PREMIX 250 ML IV SCH ×3 (07:14→23:45)
[2023-03-01 07:47] LABS: SODIUM 168 mEq/L (136-145)
[2023-03-01] MEDS ORDERED: DESMOPRESSIN ACETATE 4MCG/ML AMP IV SCH (08:30)
[2023-03-01] MEDS: PHENYLEPHRINE 100 MG in DEXT 5% WATER 240 ML IV PRN ×4 (09:19→23:48)
[2023-03-01] MEDS: MIDODRINE HCL 5MG TABLET PO SCH ×3 (09:41→17:31)
[2023-03-01] MEDS: INSULIN GLARGINE 100 UNITS/ML SUBCUT SCH ×2 (09:44→22:29)
[2023-03-01 11:24] LABS: BG BASE EXCESS -0.3 mmol/L (-2.0-2.0); BG CARBOXYHEMOGLOBIN 0.3 % (0.5-1.5); BG FRACTION INSPIRED OXYGEN 100; BG HCO3 ACT 27.4 mmol/L (22.0-26.0); BG METHEMOGLOBIN 0.4 % (0.0-1.5); BG OXYHEMOGLOBIN 98.3 % (94.0-97.0); BG PCO2 59.1 mmHg (35.0-45.0); BG PH 7.284 (7.350-7.450); BG PO2 223.3 mmHg (75.0-100.0); BG SAMPLE SITE LEFT RADIAL; BG TOTAL HEMOGLOBIN 12.1 g/dL (12.0-18.0); BG VENT MODE VENT - AC
[2023-03-01] MEDS: LEVETIRACETAM 1000MG PREMIX 100 ML IV NR ×2 (15:57→23:49)
[2023-03-01] MEDS: LEVETIRACETAM 1,000 MG in SODIUM CHLORIDE 0.9% 100 ML IV SCH (23:00)
[2023-03-02] VITALS (115 sets, daily range): BP systolic 62–196; BP diastolic 39–132; PULSE 76–122; RESP 4–41; TEMP 97.5–98.9
[2023-03-02] MEDS ORDERED: LEVETIRACETAM 1000MG PREMIX 100 ML IV NR
[2023-03-02] MEDS: METOCLOPRAMIDE HCL 10MG/2ML VIAL IV SCH ×4 (00:17→17:43)
[2023-03-02] MEDS: INSULIN LISPRO 100 UNITS/ML SUBCUT SCH ×4 (00:19→17:54)
[2023-03-02 02:05] LABS: CHLORIDE 127 mEq/L (98-107); INDEX HEMOLYSI 1 (1-3); INDEX ICTERIC 1 (1-4); INDEX LIPEMIC 1 (1-3); POTASSIUM 3.4 mEq/L (3.5-5.1); SODIUM 155 mEq/L (136-145)
[2023-03-02 02:07] LABS: CALCIUM 8.4 mg/dL (8.5-10.1)
[2023-03-02 02:10] LABS: CARBON DIOXIDE 20 mEq/L (21-32); GLUCOSE 324 mg/dL (70-105); UREA NITROGEN BLOOD 22 mg/dL (7-21)
[2023-03-02 02:48] LABS: CREATININE 1.1 mg/dL (0.6-1.3)
[2023-03-02] MEDS: DEXTROSE 5% WATER 1,000 ML IV SCH ×4 (03:53→21:42)
[2023-03-02] MEDS: PHENYLEPHRINE 100 MG in DEXT 5% WATER 240 ML IV PRN ×3 (05:30→18:01)
[2023-03-02 05:49] LABS: BASOPHILS % 0.4 % (0.0-2.0); DIFFERENTIAL COMMENT 0; EOSINOPHILS % 1.2 % (0.0-5.0); HEMATOCRIT. 32.7 % (36.0-48.0); HEMOGLOBIN. 9.8 g/dL (12.0-16.0); LYMPHOCYTES % 13.2 % (20.0-50.0); MEAN CORPUSCULAR VOLUME 93.3 fL (81.0-99.0); MEAN PLATELET VOLUME 10.4 fl (7.4-10.4); MONOCYTES % 3.1 % (2.0-8.0); NEUTROPHILS % 82.1 % (40.0-76.0); PLATELET 109 x1000/uL (130-400); RED BLOOD CELL COUNT 3.51 mill/uL (4.2-5.4); RED CELL DISTRIBUTION WIDTH 17.7 % (11.6-14.6)
[2023-03-02 05:54] LABS: CHLORIDE 123 mEq/L (98-107); INDEX HEMOLYSI 1 (1-3); INDEX ICTERIC 1 (1-4); INDEX LIPEMIC 1 (1-3); POTASSIUM 3.1 mEq/L (3.5-5.1); SODIUM 153 mEq/L (136-145)
[2023-03-02] MEDS: CEFEPIME 2,000 MG in DEXT 5% WATER 100 ML IV SCH (05:54)
[2023-03-02] MEDS: BLOOD SUGAR DIAGNOSTIC STRIP TEST SCH ×5 (06:00→23:52)
[2023-03-02 06:01] LABS: CALCIUM 8.3 mg/dL (8.5-10.1); CARBON DIOXIDE 22 mEq/L (21-32); GLUCOSE 352 mg/dL (70-105); PHOSPHORUS 2.1 mg/dL (2.5-4.9); UREA NITROGEN BLOOD 22 mg/dL (7-21)
[2023-03-02] MEDS: PHENYTOIN SODIUM 100MG/2ML VIAL IV SCH ×3 (06:51→21:42)
[2023-03-02] MEDS ORDERED: DESMOPRESSIN ACETATE 4MCG/ML AMP IV SCH (10:00)
[2023-03-02] MEDS: LEVETIRACETAM 1,000 MG in SODIUM CHLORIDE 0.9% 100 ML IV SCH ×2 (10:54→21:42)
[2023-03-02] MEDS: INSULIN GLARGINE 100 UNITS/ML SUBCUT SCH ×2 (10:55→21:44)
[2023-03-02] MEDS: MIDODRINE HCL 5MG TABLET PO SCH ×3 (11:33→17:43)
[2023-03-02] MEDS: MEROPENEM 1,000 MG in SODIUM CHLORIDE 0.9% 100 ML IV SCH ×2 (12:43→21:43)
[2023-03-02] MEDS: DOPAMINE 400MG/250ML PREMIX 250 ML IV SCH (14:13)
[2023-03-03] VITALS (114 sets, daily range): BP systolic 77–152; BP diastolic 37–97; PULSE 68–79; RESP 4–37; TEMP 96.5–97.9
[2023-03-03] MEDS: METOCLOPRAMIDE HCL 10MG/2ML VIAL IV SCH ×5 (00:09→23:55)
[2023-03-03] MEDS: INSULIN LISPRO 100 UNITS/ML SUBCUT SCH ×5 (00:11→23:55)
[2023-03-03] MEDS: DOPAMINE 400MG/250ML PREMIX 250 ML IV SCH (00:32)
[2023-03-03] MEDS: PHENYLEPHRINE 100 MG in DEXT 5% WATER 240 ML IV PRN ×2 (02:07→13:29)
[2023-03-03] MEDS: MEROPENEM 1,000 MG in SODIUM CHLORIDE 0.9% 100 ML IV SCH ×3 (05:33→21:16)
[2023-03-03] MEDS: PHENYTOIN SODIUM 100MG/2ML VIAL IV SCH ×3 (05:34→21:16)
[2023-03-03] MEDS: BLOOD SUGAR DIAGNOSTIC STRIP TEST SCH ×4 (05:35→23:48)
[2023-03-03] MEDS: DEXTROSE 5% WATER 1,000 ML IV SCH ×2 (05:36→15:28)
[2023-03-03 05:52] LABS: BASOPHILS % 0.4 % (0.0-2.0); EOSINOPHILS % 4.7 % (0.0-5.0); HEMATOCRIT. 25.2 % (36.0-48.0); HEMOGLOBIN. 8.3 g/dL (12.0-16.0); LYMPHOCYTES % 16.8 % (20.0-50.0); MEAN CORPUSCULAR HEMOGLOBIN 28.9 pg (28.0-32.0); MEAN CORPUSCULAR VOLUME 87.5 fL (81.0-99.0); MEAN PLATELET VOLUME 10.5 fl (7.4-10.4); MONOCYTES % 2.4 % (2.0-8.0); NEUTROPHILS % 75.7 % (40.0-76.0); PLATELET 109 x1000/uL (130-400); RED BLOOD CELL COUNT 2.88 mill/uL (4.2-5.4); RED CELL DISTRIBUTION WIDTH 15.9 % (11.6-14.6); WHITE BLOOD COUNT 13.4 x1000/uL (4.5-11.0)
[2023-03-03 06:05] LABS: CHLORIDE 116 mEq/L (98-107); INDEX HEMOLYSI 1 (1-3); INDEX ICTERIC 1 (1-4); INDEX LIPEMIC 1 (1-3); SODIUM 142 mEq/L (136-145)
[2023-03-03 06:11] LABS: CALCIUM 7.9 mg/dL (8.5-10.1); CARBON DIOXIDE 22 mEq/L (21-32); CREATININE 1.1 mg/dL (0.6-1.3); GLUCOSE 288 mg/dL (70-105); PHOSPHORUS 2.9 mg/dL (2.5-4.9); UREA NITROGEN BLOOD 23 mg/dL (7-21)
[2023-03-03 06:13] LABS: DIFFERENTIAL COMMENT 1
[2023-03-03 06:27] LABS: POTASSIUM 2.7 mEq/L (3.5-5.1)
[2023-03-03 08:18] LABS: BG BASE EXCESS -0.5 mmol/L (-2.0-2.0); BG DEOXYHEMOGLOBIN 1.3 % (0.0-5.0); BG HCO3 ACT 22.9 mmol/L (22.0-26.0); BG METHEMOGLOBIN 0.2 % (0.0-1.5); BG OXYGEN SATURATION 98.7 % (92.0-98.5); BG OXYHEMOGLOBIN 98.5 % (94.0-97.0); BG PCO2 32.5 mmHg (35.0-45.0); BG PH 7.466 (7.350-7.450); BG PO2 130.6 mmHg (75.0-100.0); BG SAMPLE SITE RIGHT RADIAL; BG TOTAL HEMOGLOBIN 8.6 g/dL (12.0-18.0); BG VENT MODE VENT - AC
[2023-03-03] MEDS ORDERED: POTASSIUM CHLORIDE 20MEQ/PACKET PO SCH (08:45)
[2023-03-03] MEDS: LEVETIRACETAM 1,000 MG in SODIUM CHLORIDE 0.9% 100 ML IV SCH ×2 (08:50→20:38)
[2023-03-03] MEDS: MIDODRINE HCL 5MG TABLET PO SCH ×3 (08:50→16:59)
[2023-03-03] MEDS: KCL 20MEQ/100ML PREMIX 100 ML IV SCH ×3 (10:26→23:55)
[2023-03-03] MEDS: INSULIN GLARGINE 100 UNITS/ML SUBCUT SCH ×2 (10:57→21:17)
[2023-03-03 21:39] LABS: CHLORIDE 108 mEq/L (98-107); INDEX HEMOLYSI 1 (1-3); INDEX ICTERIC 1 (1-4); INDEX LIPEMIC 1 (1-3); POTASSIUM 3.2 mEq/L (3.5-5.1); SODIUM 138 mEq/L (136-145)
[2023-03-03 21:45] LABS: CALCIUM 7.8 mg/dL (8.5-10.1); CARBON DIOXIDE 23 mEq/L (21-32); CREATININE 1.1 mg/dL (0.6-1.3); GLUCOSE 304 mg/dL (70-105); UREA NITROGEN BLOOD 25 mg/dL (7-21)
[2023-03-04] VITALS (99 sets, daily range): BP systolic 89–152; BP diastolic 42–106; PULSE 75–87; RESP 5–38; TEMP 97.4–98.4
[2023-03-04] MEDS: PHENYLEPHRINE 100 MG in DEXT 5% WATER 240 ML IV PRN ×3 (00:19→21:00)
[2023-03-04] MEDS: DEXTROSE 5% WATER 1,000 ML IV SCH ×2 (01:56→11:49)
[2023-03-04] MEDS: KCL 20MEQ/100ML PREMIX 100 ML IV SCH ×3 (01:56→15:32)
[2023-03-04] MEDS: BLOOD SUGAR DIAGNOSTIC STRIP TEST SCH ×3 (05:06→17:46)
[2023-03-04 05:14] LABS: BASOPHILS % 0.5 % (0.0-2.0); EOSINOPHILS % 1.3 % (0.0-5.0); HEMOGLOBIN. 8.5 g/dL (12.0-16.0); LYMPHOCYTES % 17.3 % (20.0-50.0); MEAN CORPUSCULAR HEMOGLOBIN 28.7 pg (28.0-32.0); MEAN CORPUSCULAR HGB CONC 32.6 g/dL (31.0-37.0); MEAN PLATELET VOLUME 10.4 fl (7.4-10.4); MONOCYTES % 2.9 % (2.0-8.0); PLATELET 113 x1000/uL (130-400); RED BLOOD CELL COUNT 2.95 mill/uL (4.2-5.4); RED CELL DISTRIBUTION WIDTH 15.7 % (11.6-14.6); WHITE BLOOD COUNT 10.9 x1000/uL (4.5-11.0)
[2023-03-04] MEDS: METOCLOPRAMIDE HCL 10MG/2ML VIAL IV SCH ×3 (05:18→17:50)
[2023-03-04] MEDS: PHENYTOIN SODIUM 100MG/2ML VIAL IV SCH ×3 (05:18→21:53)
[2023-03-04] MEDS: MEROPENEM 1,000 MG in SODIUM CHLORIDE 0.9% 100 ML IV SCH ×3 (05:19→22:30)
[2023-03-04] MEDS: INSULIN LISPRO 100 UNITS/ML SUBCUT SCH ×3 (05:20→17:58)
[2023-03-04 05:45] LABS: CHLORIDE 109 mEq/L (98-107); INDEX HEMOLYSI 1 (1-3); INDEX ICTERIC 1 (1-4); INDEX LIPEMIC 1 (1-3); POTASSIUM 3.5 mEq/L (3.5-5.1); SODIUM 134 mEq/L (136-145)
[2023-03-04 05:51] LABS: CALCIUM 7.5 mg/dL (8.5-10.1); CARBON DIOXIDE 22 mEq/L (21-32); GLUCOSE 293 mg/dL (70-105); UREA NITROGEN BLOOD 23 mg/dL (7-21)
[2023-03-04] MEDS: LEVETIRACETAM 1,000 MG in SODIUM CHLORIDE 0.9% 100 ML IV SCH ×2 (08:40→21:30)
[2023-03-04] MEDS: MIDODRINE HCL 5MG TABLET PO SCH ×3 (08:41→17:50)
[2023-03-04] MEDS: INSULIN GLARGINE 100 UNITS/ML SUBCUT SCH (10:17)
[2023-03-04] MEDS: DEXT 5%/0.2% NACL 1,000 ML IV SCH (12:00)
[2023-03-04] MEDS: DOPAMINE 400MG/250ML PREMIX 250 ML IV SCH (21:00)
[2023-03-05] VITALS (99 sets, daily range): BP systolic 79–143; BP diastolic 44–98; PULSE 68–91; RESP 8–53; TEMP 97.7–98.1
[2023-03-05] MEDS: METOCLOPRAMIDE HCL 10MG/2ML VIAL IV SCH ×4 (00:30→17:22)
[2023-03-05] MEDS: BLOOD SUGAR DIAGNOSTIC STRIP TEST SCH ×4 (00:54→17:09)
[2023-03-05] MEDS: INSULIN GLARGINE 100 UNITS/ML SUBCUT SCH ×3 (01:35→22:43)
[2023-03-05] MEDS: INSULIN LISPRO 100 UNITS/ML SUBCUT SCH ×4 (01:37→17:09)
[2023-03-05] MEDS: DEXT 5%/0.2% NACL 1,000 ML IV SCH (04:00)
[2023-03-05 05:06] LABS: BASOPHILS % 0.4 % (0.0-2.0); EOSINOPHILS % 1.2 % (0.0-5.0); HEMATOCRIT. 24.5 % (36.0-48.0); HEMOGLOBIN. 7.9 g/dL (12.0-16.0); LYMPHOCYTES % 21.3 % (20.0-50.0); MEAN CORPUSCULAR HEMOGLOBIN 27.8 pg (28.0-32.0); MEAN CORPUSCULAR HGB CONC 32.3 g/dL (31.0-37.0); MEAN PLATELET VOLUME 10.9 fl (7.4-10.4); NEUTROPHILS % 74.1 % (40.0-76.0); PLATELET 126 x1000/uL (130-400); RED BLOOD CELL COUNT 2.85 mill/uL (4.2-5.4); RED CELL DISTRIBUTION WIDTH 15.3 % (11.6-14.6); WHITE BLOOD COUNT 8.9 x1000/uL (4.5-11.0)
[2023-03-05 05:10] LABS: CHLORIDE 111 mEq/L (98-107); INDEX HEMOLYSI 3 (1-3); INDEX ICTERIC 1 (1-4); INDEX LIPEMIC 1 (1-3); POTASSIUM 3.4 mEq/L (3.5-5.1); SODIUM 138 mEq/L (136-145)
[2023-03-05 05:15] LABS: CALCIUM 7.8 mg/dL (8.5-10.1); CARBON DIOXIDE 22 mEq/L (21-32); CREATININE 0.9 mg/dL (0.6-1.3); GLUCOSE 203 mg/dL (70-105); PHOSPHORUS 3.3 mg/dL (2.5-4.9); UREA NITROGEN BLOOD 17 mg/dL (7-21)
[2023-03-05] MEDS: MEROPENEM 1,000 MG in SODIUM CHLORIDE 0.9% 100 ML IV SCH ×3 (07:00→22:26)
[2023-03-05] MEDS: PHENYTOIN SODIUM 100MG/2ML VIAL IV SCH ×3 (08:12→22:49)
[2023-03-05] MEDS: LEVETIRACETAM 1,000 MG in SODIUM CHLORIDE 0.9% 100 ML IV SCH ×2 (10:00→22:26)
[2023-03-05] MEDS: MIDODRINE HCL 5MG TABLET PO SCH ×3 (10:00→17:22)
[2023-03-05] MEDS: PHENYLEPHRINE 100 MG in DEXT 5% WATER 240 ML IV PRN (10:30)
[2023-03-05 10:45] LABS: BG BASE EXCESS -2.3 mmol/L (-2.0-2.0); BG CARBOXYHEMOGLOBIN 0.3 % (0.5-1.5); BG DEOXYHEMOGLOBIN 0.6 % (0.0-5.0); BG HCO3 ACT 21.8 mmol/L (22.0-26.0); BG METHEMOGLOBIN 0.2 % (0.0-1.5); BG OXYGEN SATURATION 99.4 % (92.0-98.5); BG OXYHEMOGLOBIN 98.9 % (94.0-97.0); BG PCO2 35.1 mmHg (35.0-45.0); BG PH 7.411 (7.350-7.450); BG PO2 339.5 mmHg (75.0-100.0); BG SAMPLE SITE RIGHT RADIAL; BG TOTAL HEMOGLOBIN 10.6 g/dL (12.0-18.0); BG VENT MODE VENT - AC
[2023-03-05] MEDS ORDERED: BISACODYL 10MG SUPP PR SCH (11:00)
[2023-03-05] MEDS ORDERED: KCL 20MEQ/100ML PREMIX 100 ML IV SCH (11:00)
[2023-03-05] MEDS ORDERED: MAGNESIUM 4 G PREMIX 100 ML IV NR (12:00)
[2023-03-06] VITALS (110 sets, daily range): BP systolic 66–137; BP diastolic 40–96; PULSE 63–70; RESP 14–25; TEMP 97.1–97.8
[2023-03-06] MEDS: PHENYLEPHRINE 100 MG in DEXT 5% WATER 240 ML IV PRN ×2 (01:15→18:02)
[2023-03-06] MEDS: METOCLOPRAMIDE HCL 10MG/2ML VIAL IV SCH ×4 (01:17→18:31)
[2023-03-06 05:45] LABS: BASOPHILS % 0.4 % (0.0-2.0); EOSINOPHILS % 1.4 % (0.0-5.0); HEMATOCRIT. 28.4 % (36.0-48.0); HEMOGLOBIN. 9.3 g/dL (12.0-16.0); LYMPHOCYTES % 23.4 % (20.0-50.0); MEAN CORPUSCULAR HEMOGLOBIN 28.1 pg (28.0-32.0); MEAN CORPUSCULAR HGB CONC 32.6 g/dL (31.0-37.0); MEAN PLATELET VOLUME 9.7 fl (7.4-10.4); NEUTROPHILS % 70.8 % (40.0-76.0); PLATELET 139 x1000/uL (130-400); RED CELL DISTRIBUTION WIDTH 15.3 % (11.6-14.6); WHITE BLOOD COUNT 7.4 x1000/uL (4.5-11.0)
[2023-03-06 05:52] LABS: CALCIUM 8.7 mg/dL (8.5-10.1); CHLORIDE 119 mEq/L (98-107); GLUCOSE 134 mg/dL (70-105); INDEX HEMOLYSI 1 (1-3); INDEX ICTERIC 1 (1-4); INDEX LIPEMIC 1 (1-3); SODIUM 148 mEq/L (136-145); UREA NITROGEN BLOOD 14 mg/dL (7-21)
[2023-03-06 05:56] LABS: CARBON DIOXIDE 24 mEq/L (21-32); CREATININE 0.8 mg/dL (0.6-1.3); PHOSPHORUS 3.6 mg/dL (2.5-4.9)
[2023-03-06] MEDS: INSULIN LISPRO 100 UNITS/ML SUBCUT SCH ×4 (06:00→17:39)
[2023-03-06] MEDS: BLOOD SUGAR DIAGNOSTIC STRIP TEST SCH ×4 (06:04→17:39)
[2023-03-06] MEDS: MEROPENEM 1,000 MG in SODIUM CHLORIDE 0.9% 100 ML IV SCH ×3 (06:04→21:40)
[2023-03-06] MEDS: PHENYTOIN SODIUM 100MG/2ML VIAL IV SCH ×3 (06:05→21:54)
[2023-03-06] MEDS: DEXT 5%/0.2% NACL 1,000 ML IV SCH (07:10)
[2023-03-06] MEDS ORDERED: POTASSIUM CHLORIDE 20MEQ TABLET SR PO SCH (09:00)
[2023-03-06] MEDS: MIDODRINE HCL 5MG TABLET PO SCH ×3 (10:36→19:24)
[2023-03-06] MEDS: LEVETIRACETAM 1,000 MG in SODIUM CHLORIDE 0.9% 100 ML IV SCH ×2 (10:37→21:39)
[2023-03-06] MEDS: INSULIN GLARGINE 100 UNITS/ML SUBCUT SCH ×2 (10:37→21:56)
[2023-03-06] MEDS ORDERED: IPRATROPIUM/ALBUTEROL 0.5-3(2.5)MG/3ML NEB HHN PRN (12:30)
[2023-03-06] MEDS ORDERED: DESMOPRESSIN ACETATE 4MCG/ML AMP IV NR (17:30)
[2023-03-07] VITALS (109 sets, daily range): BP systolic 59–142; BP diastolic 17–96; PULSE 62–71; RESP 14–61; TEMP 97.2–98.3
[2023-03-07 05:47] LABS: BASOPHILS % 0.6 % (0.0-2.0); EOSINOPHILS % 1.7 % (0.0-5.0); HEMATOCRIT. 27.7 % (36.0-48.0); LYMPHOCYTES % 26.9 % (20.0-50.0); MEAN CORPUSCULAR HEMOGLOBIN 28.1 pg (28.0-32.0); MEAN CORPUSCULAR HGB CONC 32.6 g/dL (31.0-37.0); MEAN CORPUSCULAR VOLUME 86.3 fL (81.0-99.0); MONOCYTES % 4.3 % (2.0-8.0); NEUTROPHILS % 66.5 % (40.0-76.0); PLATELET 129 x1000/uL (130-400); RED BLOOD CELL COUNT 3.22 mill/uL (4.2-5.4); RED CELL DISTRIBUTION WIDTH 15.3 % (11.6-14.6); WHITE BLOOD COUNT 5.7 x1000/uL (4.5-11.0)
[2023-03-07 05:57] LABS: CALCIUM 8.5 mg/dL (8.5-10.1); CHLORIDE 123 mEq/L (98-107); INDEX HEMOLYSI 1 (1-3); INDEX ICTERIC 1 (1-4); INDEX LIPEMIC 1 (1-3); POTASSIUM 3.3 mEq/L (3.5-5.1); SODIUM 148 mEq/L (136-145); UREA NITROGEN BLOOD 15 mg/dL (7-21)
[2023-03-07] MEDS: INSULIN LISPRO 100 UNITS/ML SUBCUT SCH ×4 (06:00→18:00)
[2023-03-07 06:02] LABS: CARBON DIOXIDE 25 mEq/L (21-32); CREATININE 0.7 mg/dL (0.6-1.3); GLUCOSE 94 mg/dL (70-105); PHOSPHORUS 4.6 mg/dL (2.5-4.9)
[2023-03-07] MEDS: MEROPENEM 1,000 MG in SODIUM CHLORIDE 0.9% 100 ML IV SCH ×3 (06:42→21:53)
[2023-03-07] MEDS: BLOOD SUGAR DIAGNOSTIC STRIP TEST SCH ×4 (06:43→18:10)
[2023-03-07] MEDS: METOCLOPRAMIDE HCL 10MG/2ML VIAL IV SCH ×5 (06:43→23:30)
[2023-03-07] MEDS: DEXTROSE 50% WATER 50ML SYRINGE IV PRN ×2 (06:43→22:49)
[2023-03-07] MEDS: PHENYTOIN SODIUM 100MG/2ML VIAL IV SCH ×3 (06:44→21:54)
[2023-03-07] MEDS: IPRATROPIUM/ALBUTEROL 0.5-3(2.5)MG/3ML NEB HHN SCH ×3 (08:05→20:31)
[2023-03-07] MEDS: LEVETIRACETAM 1,000 MG in SODIUM CHLORIDE 0.9% 100 ML IV SCH ×2 (09:20→21:53)
[2023-03-07] MEDS: INSULIN GLARGINE 100 UNITS/ML SUBCUT SCH ×2 (09:21→22:00)
[2023-03-07] MEDS: MIDODRINE HCL 5MG TABLET PO SCH ×3 (09:21→17:15)
[2023-03-07] MEDS ORDERED: POTASSIUM CHLORIDE INJ 40 MEQ in DEXT 5% WATER 250 ML IV ONE (09:45)
[2023-03-07] MEDS ORDERED: DESMOPRESSIN ACETATE 4MCG/ML AMP IV SCH (10:00)
[2023-03-07 10:15] LABS: BG BASE EXCESS -1.9 mmol/L (-2.0-2.0); BG CARBOXYHEMOGLOBIN 0.3 % (0.5-1.5); BG DEOXYHEMOGLOBIN 5.1 % (0.0-5.0); BG FRACTION INSPIRED OXYGEN 40; BG METHEMOGLOBIN 0.3 % (0.0-1.5); BG OXYGEN SATURATION 94.9 % (92.0-98.5); BG OXYHEMOGLOBIN 94.3 % (94.0-97.0); BG PCO2 39.6 mmHg (35.0-45.0); BG PH 7.382 (7.350-7.450); BG PO2 80.4 mmHg (75.0-100.0); BG SAMPLE SITE RIGHT RADIAL; BG TOTAL HEMOGLOBIN 9.8 g/dL (12.0-18.0); BG VENT MODE VENT - AC
[2023-03-07] MEDS: DEXTROSE 5% WATER 1,000 ML IV SCH (10:34)
[2023-03-07] MEDS: KCL 20MEQ/100ML X 2 FOR TOTAL KCL 40MEQ/200ML IV SCH ×2 (10:34→12:34)
[2023-03-07] MEDS: PHENYLEPHRINE 100 MG in DEXT 5% WATER 240 ML IV PRN (11:44)
[2023-03-07] MEDS ORDERED: DESMOPRESSIN ACETATE 4MCG/ML AMP IV NR (14:00)
[2023-03-08] VITALS (105 sets, daily range): BP systolic 72–170; BP diastolic 43–121; PULSE 64–89; RESP 11–36; TEMP 97.2–98.1
[2023-03-08] MEDS: IPRATROPIUM/ALBUTEROL 0.5-3(2.5)MG/3ML NEB HHN SCH ×4 (02:10→20:42)
[2023-03-08] MEDS: PHENYLEPHRINE 100 MG in DEXT 5% WATER 240 ML IV PRN ×2 (03:52→13:50)
[2023-03-08] MEDS: DEXTROSE 5% WATER 1,000 ML IV SCH ×2 (04:24→22:13)
[2023-03-08 05:59] LABS: CHLORIDE 119 mEq/L (98-107); INDEX HEMOLYSI 1 (1-3); INDEX ICTERIC 1 (1-4); INDEX LIPEMIC 1 (1-3); POTASSIUM 3.9 mEq/L (3.5-5.1); SODIUM 145 mEq/L (136-145)
[2023-03-08 06:10] LABS: ALANINE AMINOTRANSFERASE 27 IU/L (13-61); ASPARTATE AMINOTRANSFERASE 195 IU/L (15-37); BILIRUBIN TOTAL 0.2 mg/dL (0.1-1.0); CALCIUM 8.7 mg/dL (8.5-10.1); CARBON DIOXIDE 25 mEq/L (21-32); CREATININE 0.7 mg/dL (0.6-1.3); GLUCOSE 67 mg/dL (70-105); PHOSPHORUS 4.3 mg/dL (2.5-4.9); PROTEIN TOTAL 5.6 g/dL (6.0-8.3); UREA NITROGEN BLOOD 14 mg/dL (7-21)
[2023-03-08] MEDS: MEROPENEM 1,000 MG in SODIUM CHLORIDE 0.9% 100 ML IV SCH ×3 (06:12→21:13)
[2023-03-08 06:13] LABS: BASOPHILS % 0.6 % (0.0-2.0); EOSINOPHILS % 1.5 % (0.0-5.0); HEMATOCRIT. 26.9 % (36.0-48.0); HEMOGLOBIN. 8.6 g/dL (12.0-16.0); LYMPHOCYTES % 35.6 % (20.0-50.0); MEAN CORPUSCULAR HEMOGLOBIN 28.2 pg (28.0-32.0); MEAN PLATELET VOLUME 9.9 fl (7.4-10.4); MONOCYTES % 5.7 % (2.0-8.0); NEUTROPHILS % 56.6 % (40.0-76.0); PLATELET 121 x1000/uL (130-400); RED BLOOD CELL COUNT 3.06 mill/uL (4.2-5.4); RED CELL DISTRIBUTION WIDTH 15.7 % (11.6-14.6)
[2023-03-08] MEDS: METOCLOPRAMIDE HCL 10MG/2ML VIAL IV SCH ×3 (06:15→17:31)
[2023-03-08] MEDS: PHENYTOIN SODIUM 100MG/2ML VIAL IV SCH ×3 (06:15→21:14)
[2023-03-08] MEDS: DEXTROSE 50% WATER 50ML SYRINGE IV PRN ×2 (06:43→11:52)
[2023-03-08 06:45] LABS: ALBUMIN 0.8 g/dL (3.4-5.0)
[2023-03-08] MEDS: MIDODRINE HCL 5MG TABLET PO SCH ×3 (08:16→17:31)
[2023-03-08] MEDS: LEVETIRACETAM 1,000 MG in SODIUM CHLORIDE 0.9% 100 ML IV SCH ×2 (08:17→21:13)
[2023-03-08] MEDS: INSULIN GLARGINE 100 UNITS/ML SUBCUT SCH ×2 (10:30→21:29)
[2023-03-08] MEDS: INSULIN LISPRO 100 UNITS/ML SUBCUT SCH ×3 (12:00→17:46)
[2023-03-08] MEDS: BLOOD SUGAR DIAGNOSTIC STRIP TEST SCH ×3 (12:47→17:46)
[2023-03-08] MEDS: DOPAMINE 400MG/250ML PREMIX 250 ML IV SCH (14:39)
[2023-03-08] MEDS ORDERED: DESMOPRESSIN ACETATE 4MCG/ML AMP IV NR (19:00)
[2023-03-09] VITALS (114 sets, daily range): BP systolic 67–167; BP diastolic 41–127; PULSE 60–71; RESP 11–26; TEMP 97.2–98.1
[2023-03-09] MEDS: BLOOD SUGAR DIAGNOSTIC STRIP TEST SCH ×4 (00:08→17:59)
[2023-03-09] MEDS: METOCLOPRAMIDE HCL 10MG/2ML VIAL IV SCH ×4 (00:08→18:13)
[2023-03-09] MEDS: PHENYLEPHRINE 100 MG in DEXT 5% WATER 240 ML IV PRN (00:46)
[2023-03-09] MEDS: IPRATROPIUM/ALBUTEROL 0.5-3(2.5)MG/3ML NEB HHN SCH ×4 (01:30→21:20)
[2023-03-09] MEDS: MEROPENEM 1,000 MG in SODIUM CHLORIDE 0.9% 100 ML IV SCH ×2 (05:37→14:49)
[2023-03-09 05:56] LABS: HEMOGLOBIN. 8.8 g/dL (12.0-16.0); MEAN CORPUSCULAR HEMOGLOBIN 28.2 pg (28.0-32.0); MEAN CORPUSCULAR HGB CONC 32.4 g/dL (31.0-37.0); MEAN CORPUSCULAR VOLUME 87.1 fL (81.0-99.0); MEAN PLATELET VOLUME 9.5 fl (7.4-10.4); PLATELET 111 x1000/uL (130-400); RED CELL DISTRIBUTION WIDTH 15.3 % (11.6-14.6)
[2023-03-09] MEDS: INSULIN LISPRO 100 UNITS/ML SUBCUT SCH ×4 (06:00→18:00)
[2023-03-09] MEDS: PHENYTOIN SODIUM 100MG/2ML VIAL IV SCH ×3 (06:01→21:01)
[2023-03-09 06:06] LABS: CALCIUM 8.3 mg/dL (8.5-10.1); CHLORIDE 114 mEq/L (98-107); INDEX HEMOLYSI 1 (1-3); INDEX ICTERIC 1 (1-4); INDEX LIPEMIC 1 (1-3); POTASSIUM 3.7 mEq/L (3.5-5.1); SODIUM 141 mEq/L (136-145)
[2023-03-09 06:11] LABS: CARBON DIOXIDE 28 mEq/L (21-32); CREATININE 0.7 mg/dL (0.6-1.3); GLUCOSE 99 mg/dL (70-105); PHOSPHORUS 4.3 mg/dL (2.5-4.9); UREA NITROGEN BLOOD 13 mg/dL (7-21)
[2023-03-09] MEDS: MIDODRINE HCL 5MG TABLET PO SCH ×3 (09:00→17:00)
[2023-03-09] MEDS ORDERED: MAGNESIUM 2 G PREMIX 50 ML IV NR (09:00)
[2023-03-09 09:10] LABS: DIFFERENTIAL COMMENT 1
[2023-03-09] MEDS: LEVETIRACETAM 1,000 MG in SODIUM CHLORIDE 0.9% 100 ML IV SCH ×2 (09:11→21:01)
[2023-03-09] MEDS: INSULIN GLARGINE 100 UNITS/ML SUBCUT SCH ×2 (10:00→22:00)
[2023-03-09] MEDS: DEXTROSE 5% WATER 1,000 ML IV SCH (17:58)
[2023-03-10] VITALS (107 sets, daily range): BP systolic 59–136; BP diastolic 34–91; PULSE 70–88; RESP 14–68; TEMP 95.3–98.1
[2023-03-10] MEDS: BLOOD SUGAR DIAGNOSTIC STRIP TEST SCH ×5 (00:11→23:23)
[2023-03-10] MEDS: METOCLOPRAMIDE HCL 10MG/2ML VIAL IV SCH ×5 (00:16→23:28)
[2023-03-10] MEDS: IPRATROPIUM/ALBUTEROL 0.5-3(2.5)MG/3ML NEB HHN SCH ×4 (02:48→20:22)
[2023-03-10] MEDS: PHENYLEPHRINE 100 MG in DEXT 5% WATER 240 ML IV PRN ×3 (03:30→23:38)
[2023-03-10] MEDS: DEXTROSE 5% WATER 1,000 ML IV SCH ×2 (04:00→15:12)
[2023-03-10] MEDS: INSULIN LISPRO 100 UNITS/ML SUBCUT SCH ×5 (06:00→23:29)
[2023-03-10] MEDS: PHENYTOIN SODIUM 100MG/2ML VIAL IV SCH ×3 (06:45→21:54)
[2023-03-10] MEDS: LEVETIRACETAM 1,000 MG in SODIUM CHLORIDE 0.9% 100 ML IV SCH ×2 (09:20→20:09)
[2023-03-10] MEDS: MIDODRINE HCL 5MG TABLET PO SCH ×3 (09:21→18:51)
[2023-03-10] MEDS: INSULIN GLARGINE 100 UNITS/ML SUBCUT SCH ×2 (10:00→22:00)
[2023-03-10 10:17] LABS: NUCLEATED RED BLOOD CELLS 3 /100 WBC; PLATELET ESTIMATE DECREASED
[2023-03-10 12:05] LABS: BG CARBOXYHEMOGLOBIN 0.3 % (0.5-1.5); BG DEOXYHEMOGLOBIN 2.8 % (0.0-5.0); BG FRACTION INSPIRED OXYGEN 35; BG HCO3 ACT 24.7 mmol/L (22.0-26.0); BG METHEMOGLOBIN 0.3 % (0.0-1.5); BG OXYGEN SATURATION 97.2 % (92.0-98.5); BG OXYHEMOGLOBIN 96.6 % (94.0-97.0); BG PCO2 40.5 mmHg (35.0-45.0); BG PH 7.403 (7.350-7.450); BG PO2 96.6 mmHg (75.0-100.0); BG SAMPLE SITE RIGHT RADIAL; BG TOTAL HEMOGLOBIN 9.7 g/dL (12.0-18.0); BG VENT MODE VENT - AC
[2023-03-10] MEDS ORDERED: MAGNESIUM 2 G PREMIX 50 ML IV NR (14:00)
[2023-03-10] MEDS: FLUDROCORTISONE ACETATE 0.1MG TABLET PO SCH (18:49)
[2023-03-11] VITALS (123 sets, daily range): BP systolic 37–160; BP diastolic 25–102; PULSE 73–103; RESP 14–40; TEMP 97.8–98.7
[2023-03-11] MEDS: IPRATROPIUM/ALBUTEROL 0.5-3(2.5)MG/3ML NEB HHN SCH ×4 (00:46→20:17)
[2023-03-11 05:42] LABS: BASOPHILS % 0.3 % (0.0-2.0); EOSINOPHILS % 2.6 % (0.0-5.0); HEMATOCRIT. 25.9 % (36.0-48.0); HEMOGLOBIN. 8.4 g/dL (12.0-16.0); LYMPHOCYTES % 26.1 % (20.0-50.0); MEAN CORPUSCULAR HEMOGLOBIN 27.8 pg (28.0-32.0); MEAN CORPUSCULAR HGB CONC 32.6 g/dL (31.0-37.0); MEAN CORPUSCULAR VOLUME 85.4 fL (81.0-99.0); MEAN PLATELET VOLUME 9.9 fl (7.4-10.4); MONOCYTES % 4.3 % (2.0-8.0); NEUTROPHILS % 66.7 % (40.0-76.0); PLATELET 98 x1000/uL (130-400); RED BLOOD CELL COUNT 3.03 mill/uL (4.2-5.4); RED CELL DISTRIBUTION WIDTH 15.5 % (11.6-14.6); WHITE BLOOD COUNT 6.1 x1000/uL (4.5-11.0)
[2023-03-11 05:49] LABS: DIFFERENTIAL COMMENT 1
[2023-03-11 05:53] LABS: CALCIUM 8.2 mg/dL (8.5-10.1); CHLORIDE 110 mEq/L (98-107); INDEX HEMOLYSI 1 (1-3); INDEX ICTERIC 1 (1-4); INDEX LIPEMIC 1 (1-3); POTASSIUM 3.3 mEq/L (3.5-5.1); SODIUM 141 mEq/L (136-145)
[2023-03-11 05:57] LABS: CARBON DIOXIDE 26 mEq/L (21-32); CREATININE 0.5 mg/dL (0.6-1.3); GLUCOSE 153 mg/dL (70-105); PHOSPHORUS 4.6 mg/dL (2.5-4.9); UREA NITROGEN BLOOD 8 mg/dL (7-21)
[2023-03-11] MEDS: INSULIN LISPRO 100 UNITS/ML SUBCUT SCH ×2 (06:00→12:00)
[2023-03-11] MEDS: BLOOD SUGAR DIAGNOSTIC STRIP TEST SCH ×3 (06:23→18:09)
[2023-03-11] MEDS: METOCLOPRAMIDE HCL 10MG/2ML VIAL IV SCH ×4 (06:31→23:50)
[2023-03-11] MEDS: PHENYTOIN SODIUM 100MG/2ML VIAL IV SCH ×3 (06:31→22:17)
[2023-03-11] MEDS: OMEPRAZOLE 20MG CAPSULE EXTENDED RELEASE PO SCH (07:50)
[2023-03-11] MEDS: MIDODRINE HCL 5MG TABLET PO SCH ×3 (09:25→18:09)
[2023-03-11] MEDS: FLUDROCORTISONE ACETATE 0.1MG TABLET PO SCH (09:25)
[2023-03-11] MEDS: LEVETIRACETAM 1,000 MG in SODIUM CHLORIDE 0.9% 100 ML IV SCH ×2 (09:25→21:15)
[2023-03-11] MEDS: INSULIN GLARGINE 100 UNITS/ML SUBCUT SCH ×2 (10:00→22:00)
[2023-03-11] MEDS ORDERED: POTASSIUM CHLORIDE 20MEQ/PACKET PO NR (11:45)
[2023-03-11] MEDS: DEXTROSE 5% WATER 1,000 ML IV SCH (14:19)
[2023-03-11] MEDS: PHENYLEPHRINE 100 MG in DEXT 5% WATER 240 ML IV PRN (20:11)
[2023-03-12] VITALS (102 sets, daily range): BP systolic 51–134; BP diastolic 28–90; PULSE 85–108; RESP 14–69; TEMP 97.5–99.7
[2023-03-12] MEDS: PHENYLEPHRINE 100 MG in DEXT 5% WATER 240 ML IV PRN ×3 (02:27→22:00)
[2023-03-12] MEDS: PHENYTOIN SODIUM 100MG/2ML VIAL IV SCH ×3 (05:28→21:34)
[2023-03-12] MEDS: METOCLOPRAMIDE HCL 10MG/2ML VIAL IV SCH ×3 (05:28→18:03)
[2023-03-12 05:44] LABS: CHLORIDE 112 mEq/L (98-107); INDEX HEMOLYSI 1 (1-3); INDEX ICTERIC 1 (1-4); INDEX LIPEMIC 1 (1-3); POTASSIUM 4.1 mEq/L (3.5-5.1); SODIUM 143 mEq/L (136-145)
[2023-03-12 05:45] LABS: BASOPHILS % 0.4 % (0.0-2.0); HEMATOCRIT. 32.8 % (36.0-48.0); HEMOGLOBIN. 10.5 g/dL (12.0-16.0); MEAN CORPUSCULAR HEMOGLOBIN 27.8 pg (28.0-32.0); MEAN CORPUSCULAR VOLUME 86.9 fL (81.0-99.0); MEAN PLATELET VOLUME 8.8 fl (7.4-10.4); MONOCYTES % 5.8 % (2.0-8.0); NEUTROPHILS % 66.8 % (40.0-76.0); PLATELET 100 x1000/uL (130-400); RED BLOOD CELL COUNT 3.78 mill/uL (4.2-5.4); RED CELL DISTRIBUTION WIDTH 16.1 % (11.6-14.6); WHITE BLOOD COUNT 9.2 x1000/uL (4.5-11.0)
[2023-03-12 05:49] LABS: CALCIUM 9.1 mg/dL (8.5-10.1); CARBON DIOXIDE 27 mEq/L (21-32); CREATININE 0.8 mg/dL (0.6-1.3); GLUCOSE 207 mg/dL (70-105); PHOSPHORUS 5.5 mg/dL (2.5-4.9); UREA NITROGEN BLOOD 9 mg/dL (7-21)
[2023-03-12] MEDS: BLOOD SUGAR DIAGNOSTIC STRIP TEST SCH ×4 (06:00→18:00)
[2023-03-12] MEDS: INSULIN LISPRO 100 UNITS/ML SUBCUT SCH ×4 (06:00→18:00)
[2023-03-12 06:06] LABS: DIFFERENTIAL COMMENT 1
[2023-03-12] MEDS: OMEPRAZOLE 20MG CAPSULE EXTENDED RELEASE PO SCH (09:08)
[2023-03-12] MEDS: DEXTROSE 5% WATER 1,000 ML IV SCH (09:09)
[2023-03-12] MEDS: FLUDROCORTISONE ACETATE 0.1MG TABLET PO SCH (09:09)
[2023-03-12] MEDS: MIDODRINE HCL 5MG TABLET PO SCH ×3 (09:09→18:03)
[2023-03-12] MEDS: LEVETIRACETAM 1,000 MG in SODIUM CHLORIDE 0.9% 100 ML IV SCH ×2 (09:13→21:34)
[2023-03-12] MEDS: INSULIN GLARGINE 100 UNITS/ML SUBCUT SCH ×2 (10:00→21:35)
[2023-03-12] MEDS ORDERED: MAGNESIUM 2 G PREMIX 50 ML IV NR (10:30)
[2023-03-13] VITALS (52 sets, daily range): BP systolic 41–138; BP diastolic 22–90; PULSE 81–89; RESP 14–32; TEMP 97.6–97.9; O2SAT 99
[2023-03-13] MEDS: BLOOD SUGAR DIAGNOSTIC STRIP TEST SCH ×2 (00:06→06:11)
[2023-03-13] MEDS: METOCLOPRAMIDE HCL 10MG/2ML VIAL IV SCH ×2 (00:11→06:16)
[2023-03-13] MEDS: INSULIN LISPRO 100 UNITS/ML SUBCUT SCH ×2 (00:12→06:16)
[2023-03-13] MEDS: PHENYLEPHRINE 100 MG in DEXT 5% WATER 240 ML IV PRN ×2 (03:17→08:03)
[2023-03-13 05:55] LABS: BASOPHILS % 0.6 % (0.0-2.0); HEMATOCRIT. 28.8 % (36.0-48.0); HEMOGLOBIN. 9.2 g/dL (12.0-16.0); LYMPHOCYTES % 24.9 % (20.0-50.0); MEAN CORPUSCULAR HGB CONC 32.1 g/dL (31.0-37.0); MEAN CORPUSCULAR VOLUME 87.2 fL (81.0-99.0); MEAN PLATELET VOLUME 8.3 fl (7.4-10.4); MONOCYTES % 6.8 % (2.0-8.0); NEUTROPHILS % 64.7 % (40.0-76.0); PLATELET 110 x1000/uL (130-400); RED CELL DISTRIBUTION WIDTH 15.8 % (11.6-14.6); WHITE BLOOD COUNT 10.3 x1000/uL (4.5-11.0)
[2023-03-13 06:12] LABS: CHLORIDE 112 mEq/L (98-107); INDEX HEMOLYSI 2 (1-3); INDEX ICTERIC 1 (1-4); INDEX LIPEMIC 1 (1-3); POTASSIUM 3.9 mEq/L (3.5-5.1); SODIUM 145 mEq/L (136-145)
[2023-03-13] MEDS: PHENYTOIN SODIUM 100MG/2ML VIAL IV SCH (06:16)
[2023-03-13] MEDS: DEXTROSE 5% WATER 1,000 ML IV SCH (06:16)
[2023-03-13 06:19] LABS: CALCIUM 9.3 mg/dL (8.5-10.1); CARBON DIOXIDE 29 mEq/L (21-32); CREATININE 0.9 mg/dL (0.6-1.3); GLUCOSE 221 mg/dL (70-105); PHOSPHORUS 6.7 mg/dL (2.5-4.9); UREA NITROGEN BLOOD 11 mg/dL (7-21)
[2023-03-13] MEDS: OMEPRAZOLE 20MG CAPSULE EXTENDED RELEASE PO SCH (07:53)
[2023-03-13] MEDS: MIDODRINE HCL 5MG TABLET PO SCH (08:26)
[2023-03-13] MEDS: FLUDROCORTISONE ACETATE 0.1MG TABLET PO SCH (08:26)
[2023-03-13] MEDS: LEVETIRACETAM 1,000 MG in SODIUM CHLORIDE 0.9% 100 ML IV SCH (08:27)
[2023-03-13] MEDS ORDERED: DESMOPRESSIN ACETATE 4MCG/ML AMP IV NR (09:00)
[2023-03-13] MEDS: INSULIN GLARGINE 100 UNITS/ML SUBCUT SCH (09:15)
== END 2023-03-13 10:38 | disposition short-term general hospital (02) | DRG 3 ==
LOC: ER 13:27 → CANBEDREQ 16:17 → EDBEDREQ 19:56 → ORIP 23:27 → MICUSO 23:33 → 5EST 02-23 12:42 → MICUSO 03-01 07:13 → MICUNO 03-03 04:39 → CVICU 03-05 09:51
PROVIDERS: ADMIT Internal Medicine; ATTEND Internal Medicine
PROC: 00H032Z Insertion of Monitoring Device into Brain, Percutaneous Approach (ICD-10-PCS; principal; 2023-02-09)
PROC: 4A103BD Monitoring of Intracranial Pressure, Percutaneous Approach (ICD-10-PCS; 2023-02-09)
PROC: 5A1955Z Respiratory Ventilation, Greater than 96 Consecutive Hours (ICD-10-PCS; 2023-02-09)
PROC: 00CC0ZZ Extirpation of Matter from Cerebellum, Open Approach (ICD-10-PCS; 2023-02-09)
PROC: 0NU Head and Facial Bones, Supplement (ICD-10-PCS; 2023-02-09)
PROC: 00U207Z Supplement Dura Mater with Autologous Tissue Substitute, Open Approach (ICD-10-PCS; 2023-02-09)
PROC: 0W9 Anatomical Regions, General, Drainage (ICD-10-PCS; 2023-02-09)
PROC: 05HM33Z Insertion of Infusion Device into Right Internal Jugular Vein, Percutaneous Approach (ICD-10-PCS; 2023-02-09)
PROC: B543ZZA Ultrasonography of Right Jugular Veins, Guidance (ICD-10-PCS; 2023-02-09)
PROC: 0BH18EZ Insertion of Endotracheal Airway into Trachea, Via Natural or Artificial Opening Endoscopic (ICD-10-PCS; 2023-02-09)
PROC: 0B110F4 Bypass Trachea to Cutaneous with Tracheostomy Device, Open Approach (ICD-10-PCS; 2023-02-20)
PROC: 0GBJ0ZZ Excision of Thyroid Gland Isthmus, Open Approach (ICD-10-PCS; 2023-02-20)
PROC: 5A1955Z Respiratory Ventilation, Greater than 96 Consecutive Hours (ICD-10-PCS; 2023-02-20)
PROC: 0DH63UZ Insertion of Feeding Device into Stomach, Percutaneous Approach (ICD-10-PCS; 2023-02-21)
PROC: 5A0935A Assistance with Respiratory Ventilation, Less than 24 Consecutive Hours, High Flow/Velocity Cannula (ICD-10-PCS; 2023-02-25)
PROC: 0DH68UZ Insertion of Feeding Device into Stomach, Via Natural or Artificial Opening Endoscopic (ICD-10-PCS; 2023-02-28)
PROC: 4A00X4Z Measurement of Central Nervous Electrical Activity, External Approach (ICD-10-PCS; 2023-03-01)
DX: A41.52 Sepsis due to Pseudomonas (principal); I60.9 Nontraumatic subarachnoid hemorrhage, unspecified; J18.9 Pneumonia, unspecified organism; J96.01 Acute respiratory failure with hypoxia; J96.02 Acute respiratory failure with hypercapnia; I61.4 Nontraumatic intracerebral hemorrhage in cerebellum; I61.5 Nontraumatic intracerebral hemorrhage, intraventricular; G93.5 Compression of brain; I16.1 Hypertensive emergency; E46 Unspecified protein-calorie malnutrition; E87.0 Hyperosmolality and hypernatremia; G93.40 Encephalopathy, unspecified; N39.0 Urinary tract infection, site not specified; N17.9 Acute kidney failure, unspecified; G91.9 Hydrocephalus, unspecified; E87.29 Other acidosis; G93.1 Anoxic brain damage, not elsewhere classified; J81.1 Chronic pulmonary edema; Z99.11 Dependence on respirator [ventilator] status; Z68.41 Body mass index [BMI] 40.0-44.9, adult; Z20.822 Contact with and (suspected) exposure to COVID-19; E66.01 Morbid (severe) obesity due to excess calories; E87.6 Hypokalemia; E11.65 Type 2 diabetes mellitus with hyperglycemia; D64.9 Anemia, unspecified; E78.5 Hyperlipidemia, unspecified; I10 Essential (primary) hypertension; R13.12 Dysphagia, oropharyngeal phase; D69.6 Thrombocytopenia, unspecified; E83.42 Hypomagnesemia; J98.2 Interstitial emphysema; E87.8 Other disorders of electrolyte and fluid balance, not elsewhere classified; K29.70 Gastritis, unspecified, without bleeding; Z82.49 Family history of ischemic heart disease and other diseases of the circulatory system; Z86.73 Personal history of transient ischemic attack (TIA), and cerebral infarction without residual deficits
CPT/HCPCS: 31500; 36415; 36600; 70490; 70496; 70498; 71045; 71250; 74018; 74176; 78610; 80048; 80053; 80305; 80307; 80320; 80329; 81003; 82010; 82140; 82375; 82607; 82728; 82746; 82805; 82962; 83036; 83540; 83550; 83605; 83735; 83880; 83935; 84100; 84145; 84439; 84443; 84484; 85025; 85044; 87070; 87077; 87186; 87389; 87426; 93005; 94002; 94003; 94640; 99291; A6261; A9512; C9113; J0360; J0456; J0690; J0692; J0696; J1100; J1165; J1265; J1580; J1815; J1940; J1953; J2185; J2248; J2250; J2270; J2370; J2405; J2597; J2704; J2710; J2765; J3010; J3475; J3480; J3490; J7030; J7050; J7060; J7070; J7120; J7121; A4315; C1713; G0480